=== PATIENT | male | born 1980 | race Caucasian/White ===

== ENCOUNTER 2017-08-03 11:34 | Inpatient (IN) | payer OTHER ==
[2017-08-03 13:04] VITALS: BMI 26.9
--- NOTE | 2017-08-03 13:07 | HP ---
COWS - Scale Resting Pulse: 0= [place] 80 or Below Sweatin= Chills/Flushing Restless Observation: 1= Difficult to Sit Still Pupil Size: 1= Pupils >than Normal Bone or Joint Aches: 2= Severe Diffuse Aches Runny Nose/ Eye Tearin= Runny Nose/Eyes GI Upset > 30mins: 1= Stomach Cramp Tremor Observation: 2= Slight Tremor Visible Yawning Observation: 2= >3x During Session Anxiety or Irritability: 2=Irritable/Anxious Goose Flesh Skin: 3=Piloerection COWS Score: 17 Admission ROS S - HPI Chief Complaint: heroin withdrawal sx Allergies/Adverse Reactions: Allergies Allergy/AdvReac Type Severity Reaction Status Date / Time penicillin G Allergy Severe Hives Verified 08/03/17 12:44 History of Present Illness: 37 years old male with long history of heroin nicotine dependence has depression and abscess on right calf is admitted to detox Exam Limitations: No Limitations - Ebola screening Have you traveled outside of the country in the last 21 days: No (N) Have you had contact with anyone from an Ebola affected area: No Have you been sick,other than usual withdrawal symptoms: No Do you have a fever: No - Review of Systems Constitutional: Loss of Appetite, Changes in sleep, Unintentional Wgt. Loss, Unexplained wgt Loss EENT: reports: No Symptoms Reported Respiratory: reports: No Symptoms reported Cardiac: reports: No Symptoms Reported GI: reports: Nausea, Poor Appetite, Poor Fluid Intake, Abdominal cramping : reports: No Symptoms Reported Musculoskeletal: reports: Back Pain, Joint Pain, Muscle Pain, Neck Pain Integumentary: reports: Change in Color (right calf) Neuro: reports: Tremors Endocrine: reports: No Symptoms Reported Hematology: reports: No Symptoms Reported Psychiatric: reports: Judgement Intact, Orientated x3, Anxious, Depressed Other Systems: Reviewed and Negative Patient History - Patient Medical History Hx Anemia: No Hx Asthma: No Hx Chronic Obstructive Pulmonary Disease (COPD): No Hx Cancer: No Hx Cardiac Disorders: No Hx Congestive Heart Failure: No Hx Hypertension: No Hx Hypercholesterolemia: No Hx Pacemaker: No HX Cerebrovascular Accident: No Hx Seizures: No Hx Dementia: No Hx Diabetes: No Hx Gastrointestinal Disorders: No Hx Liver Disease: No Hx Genitourinary Disorders: No Hx Sexually Transmitted Disorders: No Hx Renal Disease (ESRD): No Hx Thyroid Disease: No Hx Human Immunodeficiency Virus (HIV): No Hx Hepatitis C: No Hx Depression: Yes Hx Suicide Attempt: No Hx Bipolar Disorder: No Hx Schizophrenia: No - Patient Surgical History Past Surgical History: No Hx Neurologic Surgery: No Hx Cataract Extraction: No Hx Cardiac Surgery: No Hx Lung Surgery: No Hx Breast Surgery: No Hx Breast Biopsy: No Hx Abdominal Surgery: No Hx Appendectomy: No Hx Cholecystectomy: No Hx Genitourinary Surgery: No Hx Orthopedic Surgery: No - PPD History Previous Implant?: Yes Documented Results: Negative w/o proof Implanted On Prior R Admission?: No PPD to be Administered?: Yes - Smoking Cessation Smoking history: Current every day smoker Have you smoked in the past 12 months: Yes Aproximately how many cigarettes per day: 20 Cigars Per Day: 0 Hx Chewing Tobacco Use: No Initiated information on smoking cessation: Yes 'Breaking Loose' booklet given: 08/03/17 - Substance & Tx. History Hx Alcohol Use: No Hx Substance Use: No Substance Use Type: Cocaine, Heroin, Marijuana Hx Substance Use Treatment: Yes ([facility] - Substances Abused Heroin Route: Injection Frequency: Daily Amount used: 15-20 bags Age of first use: 31 Date of Last Use: 08/03/17 Marijuana Route: Smoking Frequency: Daily Amount used: $10 Age of first use: 19 Date of Last Use: 08/02/17 Family Disease History - Family Disease History Family Disease History: Diabetes: Mother, Other: Father (/killed) Admission Physical Exam BHS - Vital Signs Vital Signs: Vital Signs - 24 hr 08/03/17 11:53 Temperature 95.8 F L Pulse Rate 75 Respiratory 18 Rate Blood Pressure 125/70 - Physical General Appearance: Yes: Appropriately Dressed, Mild Distress, Tremorous, Irritable, Sweating, Anxious HEENTM: Yes: Hearing grossly Normal, Normocephalic, Normal Voice Respiratory: Yes: Chest Non-Tender, Lungs Clear, Normal Breath Sounds, No Respiratory Distress, No Accessory Muscle Use Neck: Yes: Supple, Trachea in good position Breast: Yes: Breasts Symetrical, No Discharge Cardiology: Yes: Regular Rhythm, Regular Rate, S1, S2 Abdominal: Yes: Normal Bowel Sounds, Non Tender, Flat Genitourinary: Yes: Within Normal Limits Back: Yes: Normal Inspection Musculoskeletal: Yes: full range of Motion, Gait Steady, Back pain, Muscle Pain Extremities: Yes: Normal Range of Motion, Non-Tender, Tremors Neurological: Yes: Fully Oriented, Alert, Motor Strength 5/5, Normal Response, Depressed Affect Integumentary: Yes: Warm, Track Qureshi, Other (abscess right calf) Lymphatic: Yes: Within Normal Limits - Diagnostic (1) Opioid dependence with withdrawal Current Visit: Yes Status: Acute (2) Abscess Current Visit: Yes Status: Acute Comment: right calf begin levaquen (3) Weight loss Current Visit: Yes Status: Acute Comment: ensure (4) Depression (emotion) Current Visit: Yes Status: Acute Qualifiers: Depression Type: dysthymia Qualified Code(s): F34.1 - Dysthymic disorder (5) Nicotine dependence Current Visit: Yes Status: Acute Qualifiers: Nicotine product type: cigarettes Substance use status: in withdrawal Qualified Code(s): F17.213 - Nicotine dependence, cigarettes, with withdrawal Cleared for Admission [facility] - Detox or Rehab [facility] Level of Care: Medically Managed Detox Regimen/Protocol: Methadone [facility] Breath Alcohol Content Breath Alcohol Content: 0 Urine Drug Screen - Results Drug Screen Negative: Yes Urine Drug Screen Results: THC-Marijuana, CASTRO-Cocaine, OPI-Opiates
[2017-08-03] MEDS ORDERED: ACETAMINOPHEN 325 MG TABLET (FP) PO PRN (13:12)
[2017-08-03] MEDS ORDERED: MAGNESIUM HYDROX 2400MG/30ML ORAL SUSPENSION 30 ML CUP PO PRN (13:12)
[2017-08-03] MEDS ORDERED: NICOTINE 21 MG/24 HOURS TOPICAL PATCH TD PRN (13:12)
[2017-08-03] MEDS ORDERED: LOPERAMIDE HCL 2 MG CAPSULE PO PRN (13:12)
[2017-08-03] MEDS ORDERED: MAGNESIUM CITRATE 300 ML BOTTLE PO PRN (13:12)
[2017-08-03] MEDS ORDERED: P-EPHED 60MG/TRIPROLIDI 2.5MG TABLET PO PRN (13:12)
[2017-08-03] MEDS ORDERED: MENTHOL/PHENOL 1 EACH UD MM PRN (13:12)
[2017-08-03] MEDS ORDERED: NICOTINE POLACRILEX 4 MG GUM BUC PRN (13:12)
[2017-08-03] MEDS ORDERED: guaiFENesin/D-METHORPHAN HB 10 ML UNIT-DOSE CUPS PO PRN (13:12)
[2017-08-03] MEDS ORDERED: MAG HYDROX/AL HYDROX/SIMETH 30 ML UNIT-DOSE CUP PO PRN (13:12)
[2017-08-03] MEDS ORDERED: METHADONE HCL 10 MG TABLET (FOR DETOX USE ONLY) PO ONE ×2 (15:45→23:00)
[2017-08-03] MEDS: diazePAM 5 MG TABLET PO PRN ×2 (15:54→22:09)
[2017-08-03] MEDS: IBUPROFEN 400 MG TABLET (FP) PO PRN (16:14)
[2017-08-03] MEDS: THIAMINE HCL 100 MG TABLET (FP) PO SCH (22:08)
[2017-08-03] MEDS: MELATONIN 5 MG TABLETS PO PRN (22:09)
[2017-08-04] MEDS ORDERED: METHADONE HCL 10 MG TABLET (FOR DETOX USE ONLY) PO ONE (10:00)
[2017-08-04] MEDS: PRENATAL VITAMINS W/ FOLIC ACID TABLET (FP) PO SCH (10:19)
[2017-08-04] MEDS ORDERED: BACITRACIN 0.9 GM PACKET TP SCH (11:00)
--- NOTE | 2017-08-04 11:12 | PN ---
BHS COWS - Scale Resting Pulse: 0= [place] 80 or Below Sweatin=Flushed/Facial Moisture Restless Observation: 1= Difficult to Sit Still Pupil Size: 0= Normal to Room Light Bone or Joint Aches: 4=Acute Joint/Muscle Pain Runny Nose/ Eye Tearin= None GI Upset > 30mins: 0= None Tremor Observation of Outstretched Hands: 1= Tremor [place], Not Seen Yawning Observation: 0= None Anxiety or Irritability: 4=Extreme Anxiety Goose Flesh Skin: 0=Smooth Skin COWS Score: 12 S Progress Note (SOAP) Subjective: R leg pain/abscess sleepless Leg muscle spasm Objective: 08/04/17 11:10 A & O x 3 redness/abscess to R leg ambulates Vital Signs Temperature 98.1 F 08/03/17 22:55 Pulse Rate 72 08/04/17 09:20 Respiratory Rate 16 08/04/17 09:20 Blood Pressure 111/54 08/04/17 09:20 O2 Sat by Pulse Oximetry (%) labs pending Assessment: 08/04/17 11:11 withdrawal sx Plan: continue detox muscle relaxant for leg spasm continue antibiotics increase hydration vistaril prn for agitation
[2017-08-04] MEDS ORDERED: CYCLOBENZAPRINE HCL 5 MG TABLET PO ONE (11:15)
[2017-08-04] MEDS: IBUPROFEN 400 MG TABLET (FP) PO PRN (11:59)
[2017-08-04] MEDS: BACITRACIN 0.9 GM PACKET TP SCH ×2 (12:07→22:09)
--- NOTE | 2017-08-04 16:11 | CONSULT ---
[facility] Psychiatric Consult - Data Date of interview: 08/04/17 Admission source: [facility] Identifying data: First admission to [facility] for this 37 y/o male seeking detox treatment on for heroin,cannabis and cocaine dependence.Patient is single,a father of two,homeless,unemployed and supported on food stamps. Substance Abuse History: Confirmed by the patient in my interview.Details in current [facility] report : Smoking history: Current every day smoker. Have you smoked in the past 12 months: Yes. Aproximately how many cigarettes per day: 20. Cigars Per Day: 0. Hx Chewing Tobacco Use: No. Initiated information on smoking cessation: Yes. 'Breaking Loose' booklet given: 08/03/17. - Substance & Tx. History. Hx Alcohol Use: No. Hx Substance Use: No. Substance Use Type: Cocaine, Heroin, Marijuana. Hx Substance Use Treatment: [facility] ([facility] - Substances Abused. Heroin. Route: Injection. Frequency: Daily. Amount used: 15-20 bags. Age of first use: 31. Date of Last Use: 08/03/17. Marijuana. Route: Smoking. Frequency: Daily. Amount used: $10. Age of first use: 19. Date of Last Use: 08/02/17 Medical History: Remarkable for cellulitis of right leg. Psychiatric History: Patient admits to one psychiatric hospitalization ([facility] ) many years ago.Diagnosed with ADD and Bipolar Disorder.Prescribed adderall.Mr Deng reports psychiatric outpatient follow up at one of the [facility] clinics in the [place].Denies history of suicide attempts. Physical/Sexual Abuse/Trauma History: Patient denies. Additional Comment: Urine Drug Screen Results: THC-Marijuana, CASTRO-Cocaine, OPI- Opiates.Noted. Mental Status Exam - Mental Status Exam Alert and Oriented to: Time, Place, Person Cognitive Function: Good Patient Appearance: Well Groomed (tattoos on both forearms) Mood: Hostile, Nervous, Irritable Affect: Mood Congruent Patient Behavior: Cooperative (marginally cooperative) Speech Pattern: Clear, Appropriate Voice Loudness: Normal Thought Process: Goal Oriented Thought Disorder: Not Present Hallucinations: Denies Suicidal Ideation: Denies Homicidal Ideation: Denies Insight/Judgement: Poor Sleep: Poorly (wants trazodone), Difficulty falling asleep Appetite: Good Muscle strength/Tone: Normal Gait/Station: Normal Psychiatric Findings - Problem List ([place] 1, 2,3) (1) Opioid dependence with withdrawal Current Visit: Yes Status: Acute (2) Nicotine dependence Current Visit: Yes Status: Acute Qualifiers: Nicotine product type: cigarettes Substance use status: in withdrawal Qualified Code(s): F17.213 - Nicotine dependence, cigarettes, with withdrawal (3) Cannabis dependence Current Visit: Yes Status: Acute (4) Cocaine dependence Current Visit: Yes Status: Acute (5) Substance induced mood disorder Current Visit: Yes Status: Acute (6) ADD (attention deficit disorder) Current Visit: Yes Status: Chronic Comment: As per self-report.On psychostimulant medication. (7) Insomnia Current Visit: Yes Status: Acute - Initial Treatment Plan Initial Treatment Plan: Psychoeducation.Detoxification.Sleep hygiene.Psychostimulant medication withdrawn during detoxification course.Patient made aware.In response to his request for trazodone, will order trazodone 50 mg po hs (verified by pharmacy claims of 07/19/17 at [facility] ).Mr Deng is informed of the potential for priapism and he is advised to stop taking the drug if occurrence of erectile issues (painful/prolonged erection) .Agrees with this careplan.Observation.
[2017-08-04] MEDS: THIAMINE HCL 100 MG TABLET (FP) PO SCH (22:09)
[2017-08-04] MEDS: diazePAM 5 MG TABLET PO PRN (22:09)
[2017-08-04] MEDS: traZODone HCL 50 MG TABLET (FP) PO SCH (22:10)
[2017-08-05] MEDS ORDERED: METHADONE HCL 5 MG TABLET (FOR DETOX USE ONLY) PO ONE (10:00)
--- NOTE | 2017-08-05 11:01 | PN ---
BHS COWS - Scale Resting Pulse: 0= [place] 80 or Below Sweatin= Chills/Flushing Restless Observation: 0= Sits Still Pupil Size: 0= Normal to Room Light Bone or Joint Aches: 1= Mild Discomfort Runny Nose/ Eye Tearin= None GI Upset > 30mins: 1= Stomach Cramp Tremor Observation of Outstretched Hands: 1= Tremor [place], Not Seen Yawning Observation: 1= 1-2x During Session Anxiety or Irritability: 2=Irritable/Anxious Goose Flesh Skin: 3=Piloerection COWS Score: 10 BHS Progress Note (SOAP) Subjective: sweats body aches interrupted sleep irritable Objective: 08/05/17 11:00 Vital Signs Temperature 98.1 F 08/03/17 22:55 Pulse Rate 65 08/05/17 06:00 Respiratory Rate 18 08/05/17 06:00 Blood Pressure 100/56 08/05/17 06:00 O2 Sat by Pulse Oximetry (%) pt is still pending to have his blood drawn. Assessment: 08/05/17 11:03 withdrawal sx Plan: continue detox increase fluids pending blood drawn
[2017-08-05] MEDS: PRENATAL VITAMINS W/ FOLIC ACID TABLET (FP) PO SCH (11:15)
[2017-08-05] MEDS: BACITRACIN 0.9 GM PACKET TP SCH ×3 (11:16→23:31)
--- NOTE | 2017-08-05 11:32 | PN ---
S Progress Note Note: pt has an open abscess to left lower leg, wound cleanse with N/S and bacitracin covered with gauze and wrapped with kerlex encouraged pt to continue his ABX. apply warm compress prn.
[2017-08-05] MEDS: traZODone HCL 50 MG TABLET (FP) PO SCH (22:32)
[2017-08-05] MEDS: THIAMINE HCL 100 MG TABLET (FP) PO SCH (22:32)
[2017-08-05] MEDS: hydrOXYzine PAMOATE 50 MG CAPSULE (FP) PO PRN (23:49)
[2017-08-06] MEDS: diazePAM 5 MG TABLET PO PRN (00:37)
[2017-08-06] MEDS ORDERED: METHADONE HCL 5 MG TABLET (FOR DETOX USE ONLY) PO ONE (10:00)
[2017-08-06] MEDS: PRENATAL VITAMINS W/ FOLIC ACID TABLET (FP) PO SCH (10:45)
[2017-08-06] MEDS: BACITRACIN 0.9 GM PACKET TP SCH ×2 (10:45→22:18)
[2017-08-06] MEDS: cloNIDine HCL 0.1 MG TABLET PO SCH ×2 (10:45→22:15)
--- NOTE | 2017-08-06 11:21 | PN ---
BHS Progress Note (SOAP) Subjective: ALERT,IRRITABLE,ANXIOUS,INTERRUPTED SLEEP,PAIN IN THE BODY AND BACK Objective: 08/06/17 11:14 Vital Signs Temperature 96.3 F L 08/05/17 23:11 Pulse Rate 60 08/06/17 08:02 Respiratory Rate 18 08/06/17 08:02 Blood Pressure 94/50 08/06/17 08:02 O2 Sat by Pulse Oximetry (%) Assessment: 08/06/17 11:15 WITHDRAWAL SYMPTOM,COMPLIANCE ISSUE,DISCUSSED WITH PATIENT,STATED WILL COMPLY WITH RULE AND REGULATION Plan: CONTINUE DETOX
[2017-08-06 14:52] LABS: URINE APPEARANCE CLEAR; URINE BILIRUBIN NEGATIVE (<2.0 mg/dL); URINE BLOOD NEGATIVE (NEGATIVE); URINE COLOR LTYELLOW; URINE GLUCOSE (UA) NEGATIVE (NEGATIVE); URINE KETONE NEGATIVE (NEGATIVE); URINE LEUK ESTERASE NEGATIVE (NEGATIVE); URINE NITRITE NEGATIVE (NEGATIVE); URINE PROTEIN NEGATIVE (NEGATIVE); URINE UROBILINOGEN NEGATIVE mg/dL (0.2-1.0)
[2017-08-06] MEDS: traZODone HCL 50 MG TABLET (FP) PO SCH (22:15)
[2017-08-06] MEDS: THIAMINE HCL 100 MG TABLET (FP) PO SCH (22:15)
[2017-08-06] MEDS: MELATONIN 5 MG TABLETS PO PRN (22:17)
[2017-08-06] MEDS: CYCLOBENZAPRINE HCL 10 MG TABLET (FP) PO PRN (22:17)
--- NOTE | 2017-08-07 00:52 | EKG ---
Test Reason : Blood Pressure : / mmHG Vent. Rate : 068 BPM Atrial Rate : 068 BPM P-R Int : 136 ms QRS Dur : 100 ms QT Int : 400 ms P-R-T Axes : 053 077 054 degrees QTc Int : 425 ms NORMAL SINUS RHYTHM NORMAL ECG NO PREVIOUS ECGS AVAILABLE Confirmed by ARRON FELIPE MD ([id number]) on 08/07/2017 12:52:33 AM Referred By: Confirmed By:ARRON FELIPE MD
[2017-08-07] MEDS ORDERED: METHADONE HCL 10 MG TABLET (FOR DETOX USE ONLY) PO ONE (10:00)
[2017-08-07] MEDS: PRENATAL VITAMINS W/ FOLIC ACID TABLET (FP) PO SCH (11:21)
[2017-08-07] MEDS: BACITRACIN 0.9 GM PACKET TP SCH ×2 (11:21→22:10)
[2017-08-07] MEDS: cloNIDine HCL 0.1 MG TABLET PO SCH ×2 (11:22→22:10)
--- NOTE | 2017-08-07 11:32 | PN ---
S Progress Note (SOAP) Subjective: ALERT,IRRITABLE,ANXIOUS,INTERRUPTED SLEEP, Objective: 08/07/17 11:31 Vital Signs Temperature 98.2 F 08/07/17 09:13 Pulse Rate 56 L 08/07/17 09:13 Respiratory Rate 18 08/07/17 09:13 Blood Pressure 107/60 08/07/17 09:13 O2 Sat by Pulse Oximetry (%) Assessment: 08/07/17 11:31 WITHDRAWAL SYMPTOM Plan: CONTINUE DETOX,DISCHARGE IN AM
[2017-08-07 15:50] VITALS: TEMP 97.1
[2017-08-07] MEDS: CYCLOBENZAPRINE HCL 10 MG TABLET (FP) PO PRN (22:09)
[2017-08-07] MEDS: THIAMINE HCL 100 MG TABLET (FP) PO SCH (22:09)
[2017-08-07] MEDS: MELATONIN 5 MG TABLETS PO PRN (22:10)
[2017-08-07] MEDS: traZODone HCL 50 MG TABLET (FP) PO SCH (22:10)
[2017-08-07] MEDS: hydrOXYzine PAMOATE 50 MG CAPSULE (FP) PO PRN (22:12)
[2017-08-08] MEDS ORDERED: METHADONE HCL 5 MG TABLET (FOR DETOX USE ONLY) PO ONE ×2 (06:00→09:10)
[2017-08-08 07:02] VITALS: BP 98/51; PULSE 55
--- NOTE | 2017-08-08 09:16 | PN ---
S Progress Note (SOAP) Subjective: ALERT,NO COMPLAINT Objective: 08/08/17 09:12 Vital Signs Temperature 97.1 F L 08/07/17 15:50 Pulse Rate 55 L 08/08/17 07:01 Respiratory Rate 16 08/08/17 07:01 Blood Pressure 98/51 08/08/17 07:01 O2 Sat by Pulse Oximetry (%) Assessment: 08/08/17 09:12 DETOX COMPLETED,NO WITHDRAWAL SYMPTOM PATIENT REFUSED BLOOD TEST Plan: DISCHARGE TODAY,FOLLOW UP WITH AFTER CARE PROGRAM ARRANGEMENT
--- NOTE | 2017-08-08 09:23 | DS ---
[facility] Detox Discharge Summary Admission Date: 08/03/17 Discharge Date: 08/08/17 - History Present History: Opioid Dependence Additional Comments: FOLLOW UP WITH AFTER [facility] PROGRAM ARRANGEMENT Pertinent Past History: ABSCESS OF RIGHT LEG NICOTINE DEPENDENCE WEIGHT LOSS DEPRESSION - Physical Exam Results Vital Signs: Vital Signs Temperature 97.1 F L 08/07/17 15:50 Pulse Rate 55 L 08/08/17 07:01 Respiratory Rate 16 08/08/17 07:01 Blood Pressure 98/51 08/08/17 07:01 O2 Sat by Pulse Oximetry (%) Pertinent Admission Physical Exam Findings: WITHDRAWAL SIGNS AND SYMPTOM Vital Signs Temperature 97.1 F L 08/07/17 15:50 Pulse Rate 55 L 08/08/17 07:01 Respiratory Rate 16 08/08/17 07:01 Blood Pressure 98/51 08/08/17 07:01 O2 Sat by Pulse Oximetry (%) Laboratory Last Values Urine Color Ltyellow 08/06/17 10:20 Urine Appearance Clear 08/06/17 10:20 Urine pH 6.0 (5.0-8.0) 08/06/17 10:20 Ur Specific [place] 1.015 (1.001-1.035) 08/06/17 10:20 Urine Protein Negative (NEGATIVE) 08/06/17 10:20 Urine Glucose (UA) Negative (NEGATIVE) 08/06/17 10:20 Urine Ketones Negative (NEGATIVE) 08/06/17 10:20 Urine Blood Negative (NEGATIVE) 08/06/17 10:20 Urine Nitrite Negative (NEGATIVE) 08/06/17 10:20 Urine Bilirubin Negative (<2.0 mg/dL) 08/06/17 10:20 Urine Urobilinogen Negative mg/dL (0.2-1.0) 08/06/17 10:20 Ur Leukocyte Esterase Negative (NEGATIVE) 08/06/17 10:20 - Treatment Hospital Course: Detox Protocol Followed, Detoxed Safely, Responded well, Discharged Condition Good Patient has Accepted a Rehab Referral to: DECLINED - Medication Discharge Medications: Ambulatory Orders Trazodone HCl 50 mg PO HS #20 tablet 08/04/17 - Diagnosis (1) Opioid dependence with withdrawal Current Visit: Yes Status: Acute (2) Abscess of leg, right Current Visit: Yes Status: Acute (3) Cocaine dependence Current Visit: Yes Status: Acute (4) Nicotine dependence Current Visit: Yes Status: Acute Qualifiers: Nicotine product type: cigarettes Substance use status: in withdrawal Qualified Code(s): F17.213 - Nicotine dependence, cigarettes, with withdrawal (5) Weight loss Current Visit: Yes Status: Chronic - AMA Did Patient Leave Against Medical Advice: No
[2017-08-08] MEDS: cloNIDine HCL 0.1 MG TABLET PO SCH (09:28)
[2017-08-08] MEDS: BACITRACIN 0.9 GM PACKET TP SCH (09:28)
[2017-08-08] MEDS: PRENATAL VITAMINS W/ FOLIC ACID TABLET (FP) PO SCH (09:29)
== END 2017-08-08 10:00 | disposition home or self-care (01) | DRG 773 ==
LOC: YASAS 11:34 → Y6N 15:07
PROVIDERS: ADMIT Surgery; ATTEND Surgery
PROC: HZ2ZZZZ Detoxification Services for Substance Abuse Treatment (ICD-10-PCS; principal; 2017-08-03)
DX: F11.23 Opioid dependence with withdrawal (principal); F14.20 Cocaine dependence, uncomplicated; F12.20 Cannabis dependence, uncomplicated; F17.213 Nicotine dependence, cigarettes, with withdrawal; F32.9 Major depressive disorder, single episode, unspecified; F19.24 Other psychoactive substance dependence with psychoactive substance-induced mood disorder; F34.1 Dysthymic disorder; F98.8 Other specified behavioral and emotional disorders with onset usually occurring in childhood and adolescence; G47.00 Insomnia, unspecified; R63.4 Abnormal weight loss; Z68.26 Body mass index [BMI] 26.0-26.9, adult; L02.415 Cutaneous abscess of right lower limb
CPT/HCPCS: 81003; 93005; 93010; J0735

== ENCOUNTER 2017-11-05 14:41 | Inpatient (IN) | payer OTHER ==
[2017-11-05 17:15] VITALS: BMI 27.3
--- NOTE | 2017-11-05 20:41 | HP ---
COWS - Scale Resting Pulse: 0= [place] 80 or Below Sweatin= Chills/Flushing Restless Observation: 5= Unable to Sit Still Pupil Size: 0= Normal to Room Light Bone or Joint Aches: 4=Acute Joint/Muscle Pain Runny Nose/ Eye Tearin= Runny Nose/Eyes GI Upset > 30mins: 0= None Tremor Observation: 2= Slight Tremor Visible Yawning Observation: 1= 1-2x During Session Anxiety or Irritability: 2=Irritable/Anxious Goose Flesh Skin: 0=Smooth Skin COWS Score: 17 Admission [facility] Chief Complaint: c/o withdrawal sx's. seeking detox from heroin Allergies/Adverse Reactions: Allergies Allergy/AdvReac Type Severity Reaction Status Date / Time penicillin G Allergy Severe Hives Verified 11/05/17 17:18 History of Present Illness: 37 Y.O. MALE WITH HEROIN DEPENDENCE ADMITTED TO DETOX. CLIENT IS KNOWN TO THIS PROGRAM. LAST HERE 07/2017. SELF REFERRED. REPORTS LONGEST CLEAN TIME 1 YEAR. REPORTS HX/O OVERDOSE,. DENIES PAST/PRESENT SI/HI, SEIZURE D/O. Exam Limitations: No Limitations - Ebola screening Have you traveled outside of the country in the last 21 days: No Have you had contact with anyone from an Ebola affected area: No Have you been sick,other than usual withdrawal symptoms: No Do you have a fever: No - Review of Systems Constitutional: Chills, Loss of Appetite, Malaise, Night Sweats, Changes in sleep, Unintentional Wgt. Loss EENT: reports: Other ([place] NO[place]) Respiratory: reports: No Symptoms reported Cardiac: reports: No Symptoms Reported GI: reports: Poor Appetite : reports: No Symptoms Reported Musculoskeletal: reports: Joint Pain Integumentary: reports: No Symptoms Reported Neuro: reports: No Symptoms reported Endocrine: reports: No Symptoms Reported Hematology: reports: No Symptoms Reported Psychiatric: reports: Anxious, Depressed Other Systems: Reviewed and Negative Patient History - Patient Medical History Hx Anemia: No Hx Asthma: No Hx Chronic Obstructive Pulmonary Disease (COPD): No Hx Cancer: No Hx Cardiac Disorders: No Hx Congestive Heart Failure: No Hx Hypertension: No Hx Hypercholesterolemia: No Hx Pacemaker: No HX Cerebrovascular Accident: No Hx Seizures: No Hx Dementia: No Hx Diabetes: No Hx Gastrointestinal Disorders: No Hx Liver Disease: No Hx Genitourinary Disorders: No Hx Sexually Transmitted Disorders: No Hx Renal Disease (ESRD): No Hx Thyroid Disease: No Hx Human Immunodeficiency Virus (HIV): No Hx Hepatitis C: No Hx Depression: Yes Hx Suicide Attempt: Yes (Pt states he tried to overdose 1 yr ago.) Hx Bipolar Disorder: No Hx Schizophrenia: No Other Medical History: DENIES - Patient Surgical History Past Surgical History: No Hx Neurologic Surgery: No Hx Cataract Extraction: No Hx Cardiac Surgery: No Hx Lung Surgery: No Hx Breast Surgery: No Hx Breast Biopsy: No Hx Abdominal Surgery: No Hx Appendectomy: No Hx Cholecystectomy: No Hx Genitourinary Surgery: No Hx Section: No Hx Orthopedic Surgery: No Anesthesia Reaction: No - PPD History Previous Implant?: Yes Documented Results: Negative w/proof Implanted On Prior [facility] Admission?: Yes Date: 08/05/17 Results: 0 mm - Smoking Cessation Smoking history: Current every day smoker Have you smoked in the past 12 months: Yes Aproximately how many cigarettes per day: 10 Cigars Per Day: 0 Hx Chewing Tobacco Use: No Initiated information on smoking cessation: Yes 'Breaking Loose' booklet given: 11/05/17 - Substance & Tx. History Hx Alcohol Use: No Hx Substance Use: Yes Substance Use Type: Cocaine, Heroin, Marijuana Hx Substance Use Treatment: Yes ([facility]) - Substances Abused Heroin Route: Injection Frequency: Daily Amount used: 1 and 1/2 grams Age of first use: 29 Date of Last Use: 11/05/17 Cocaine Route: Oral Frequency: Daily Amount used: 1 bag Age of first use: 29 Date of Last Use: 10/29/17 Marijuana/Hashish Route: Smoking Frequency: Daily Amount used: 5 blunts Age of first use: 18 Date of Last Use: 11/05/17 Family Disease History - Family Disease History Family Disease History: Diabetes: Mother, Other: Father (/killed) Admission Physical Exam S - Vital Signs Vital Signs: Vital Signs - 24 hr 11/05/17 17:08 Temperature 97.9 F Pulse Rate 83 Respiratory 18 Rate Blood Pressure 105/63 - Physical General Appearance: Yes: Disheveled, Mild Distress, Tremorous, Irritable, Anxious HEENTM: Yes: EOMI, Normocephalic, Normal Voice, SARAH, Pharynx Normal, Rhinorrhea Respiratory: Yes: Chest Non-Tender, Lungs Clear, Normal Breath Sounds, No Respiratory Distress, No Accessory Muscle Use Neck: Yes: No masses,lesions,Nodules, Supple, Trachea in good position Breast: Yes: Breast Exam Deferred Cardiology: Yes: Regular Rhythm, Regular Rate, S1, S2 Abdominal: Yes: Non Tender, Soft, Increased Bowel Sounds Genitourinary: Yes: Within Normal Limits Back: Yes: Normal Inspection Musculoskeletal: Yes: full range of Motion, Gait Steady Extremities: Yes: Normal Capillary Refill, Normal Range of Motion, Non-Tender, Tremors Neurological: Yes: Fully Oriented, Alert, Motor Strength 5/5, Depressed Affect Integumentary: Yes: Normal Color, Dry, Warm, Track Qureshi, Other (LEFT AC NOTED WITH SMALL RAISED AREA. CLIENT STATES PRESENT X 1 WEEK FROM INJECTING HEROIN. DENIES PAIN. NO REDNESS OR WARMTH NOTED. WILL CONT TO MONITOR CLINICALLY RESOLVING ABSCESS NOTED TO LEFT LEG) Lymphatic: Yes: Within Normal Limits - Diagnostic (1) Depressed affect Current Visit: Yes Status: Suspected (2) Cannabis dependence Current Visit: Yes Status: Chronic (3) Cocaine dependence Current Visit: Yes Status: Chronic Qualifiers: Substance use status: uncomplicated Qualified Code(s): F14.20 - Cocaine dependence, uncomplicated (4) Insomnia Current Visit: Yes Status: Suspected (5) Nicotine dependence Current Visit: Yes Status: Chronic Qualifiers: Nicotine product type: cigarettes Substance use status: in withdrawal Qualified Code(s): F17.213 - Nicotine dependence, cigarettes, with withdrawal (6) Opioid dependence with withdrawal Current Visit: Yes Status: Acute (7) Substance induced mood disorder Current Visit: Yes Status: Suspected Cleared for Admission [facility] - Detox or Rehab [facility] Level of Care: Medically Managed Detox Regimen/Protocol: Methadone Clae[facility] for Rehab Admission: No [facility] Breath Alcohol Content Breath Alcohol Content: 0 Urine Drug Screen - Results Drug Screen Negative: No Urine Drug Screen Results: THC-Marijuana, CASTRO-Cocaine, OPI-Opiates, OXY- Oxycodone
[2017-11-05] MEDS ORDERED: MAGNESIUM CITRATE 300 ML BOTTLE PO PRN (20:50)
[2017-11-05] MEDS ORDERED: MAG HYDROX/AL HYDROX/SIMETH 30 ML UNIT-DOSE CUP PO PRN (20:50)
[2017-11-05] MEDS ORDERED: LOPERAMIDE HCL 2 MG CAPSULE PO PRN (20:50)
[2017-11-05] MEDS ORDERED: guaiFENesin/D-METHORPHAN HB 10 ML UNIT-DOSE CUPS PO PRN (20:50)
[2017-11-05] MEDS ORDERED: MAGNESIUM HYDROX 2400MG/30ML ORAL SUSPENSION 30 ML CUP PO PRN (20:50)
[2017-11-05] MEDS ORDERED: P-EPHED 60MG/TRIPROLIDI 2.5MG TABLET PO PRN (20:50)
[2017-11-05] MEDS ORDERED: ACETAMINOPHEN 325 MG TABLET (FP) PO PRN (20:50)
[2017-11-05] MEDS ORDERED: NICOTINE POLACRILEX 2 MG GUM BUC PRN (20:50)
[2017-11-05] MEDS ORDERED: MENTHOL/PHENOL 1 EACH UD MM PRN (20:50)
[2017-11-05] MEDS: diazePAM 5 MG TABLET PO PRN (22:13)
[2017-11-05] MEDS: THIAMINE HCL 100 MG TABLET (FP) PO SCH (22:13)
[2017-11-05] MEDS ORDERED: METHADONE HCL 10 MG TABLET (FOR DETOX USE ONLY) PO ONE ×2 (22:15→23:00)
[2017-11-06 00:57] LABS: URINE APPEARANCE SLCLOUDY; URINE BILIRUBIN NEGATIVE (<2.0 mg/dL); URINE COLOR DKYELLOW; URINE GLUCOSE (UA) NEGATIVE (NEGATIVE); URINE KETONE NEGATIVE (NEGATIVE); URINE LEUK ESTERASE NEGATIVE (NEGATIVE); URINE NITRITE NEGATIVE (NEGATIVE); URINE PROTEIN NEGATIVE (NEGATIVE)
[2017-11-06] MEDS ORDERED: METHADONE HCL 10 MG TABLET (FOR DETOX USE ONLY) PO ONE (10:00)
[2017-11-06] MEDS: PRENATAL VITAMINS W/ FOLIC ACID TABLET (FP) PO SCH (11:16)
[2017-11-06] MEDS: NICOTINE 14 MG/24 HOURS TOPICAL PATCH TD SCH (11:17)
--- NOTE | 2017-11-06 13:16 | EKG ---
Test Reason : Blood Pressure : / mmHG Vent. Rate : 060 BPM Atrial Rate : 060 BPM P-R Int : 144 ms QRS Dur : 084 ms QT Int : 416 ms P-R-T Axes : 063 076 054 degrees QTc Int : 416 ms SINUS RHYTHM WITH MARKED SINUS ARRHYTHMIA POSSIBLE LEFT ATRIAL ENLARGEMENT BORDERLINE ECG WHEN COMPARED WITH ECG OF 03-AUG-2017 15:37, NO SIGNIFICANT CHANGE WAS FOUND Confirmed by Joe Romero MD ([id number]) on 11/06/2017 1:16:05 PM Referred By: Confirmed By:Joe Romero MD
--- NOTE | 2017-11-06 15:30 | PN ---
BHS COWS - Scale Resting Pulse: 0= [place] 80 or Below Sweatin= Chills/Flushing Restless Observation: 1= Difficult to Sit Still Pupil Size: 0= Normal to Room Light Bone or Joint Aches: 0= None Runny Nose/ Eye Tearin= Runny Nose/Eyes GI Upset > 30mins: 0= None Tremor Observation of Outstretched Hands: 0= None Yawning Observation: 2= >3x During Session Anxiety or Irritability: 2=Irritable/Anxious Goose Flesh Skin: 3=Piloerection COWS Score: 11 BHS Progress Note (SOAP) Subjective: Anxious, Fatigue, Interrupted Sleep. Objective: PATIENT A & O X 3. NO ACUTE DISTRESS. 11/06/17 15:28 Vital Signs Temperature 98.5 F 11/06/17 06:55 Pulse Rate 58 L 11/06/17 13:36 Respiratory Rate 18 11/06/17 13:36 Blood Pressure 118/73 11/06/17 13:36 O2 Sat by Pulse Oximetry (%) Laboratory Tests 11/05/17 23:28 Urine Color Dkyellow Urine Appearance Slcloudy Urine pH 5.0 Ur Specific [place] 1.032 Urine Protein Negative Urine Glucose (UA) Negative Urine Ketones Negative Urine Blood Negative Urine Nitrite Negative Urine Bilirubin Negative Urine Urobilinogen 2.0 Ur Leukocyte Esterase Negative UA RESULTS NOTED. CBC, CMP, RPR RESULTS PENDING. 11/06/17 15:29 Assessment: 11/06/17 15:30 WITHDRAWAL SYMPTOMS. Plan: CONTINUE DETOX.
--- NOTE | 2017-11-06 18:25 | CONSULT ---
[facility] Psychiatric Consult - Data Date of interview: 11/06/17 Admission source: [facility] Identifying data: Hvac Estimator approached patient at bedside.Mr Deng declined to cooperate for psychiatric evaluation.
[2017-11-06] MEDS: diazePAM 5 MG TABLET PO PRN (22:16)
[2017-11-06] MEDS: THIAMINE HCL 100 MG TABLET (FP) PO SCH (22:16)
[2017-11-06] MEDS: MELATONIN 5 MG TABLETS PO PRN (22:16)
[2017-11-07] MEDS ORDERED: CYCLOBENZAPRINE HCL 5 MG TABLET PO PRN (00:37)
[2017-11-07] MEDS ORDERED: METHADONE HCL 5 MG TABLET (FOR DETOX USE ONLY) PO ONE (10:00)
[2017-11-07] MEDS: CYCLOBENZAPRINE HCL 10 MG TABLET (FP) PO PRN ×2 (10:03→21:48)
[2017-11-07] MEDS: diazePAM 5 MG TABLET PO PRN ×2 (10:03→21:48)
[2017-11-07] MEDS: PRENATAL VITAMINS W/ FOLIC ACID TABLET (FP) PO SCH (10:03)
[2017-11-07] MEDS: NICOTINE 14 MG/24 HOURS TOPICAL PATCH TD SCH (10:03)
--- NOTE | 2017-11-07 14:24 | PN ---
BHS COWS - Scale Resting Pulse: 0= NE 80 or Below Sweatin= Chills/Flushing Restless Observation: 1= Difficult to Sit Still Pupil Size: 0= Normal to Room Light Bone or Joint Aches: 0= None Runny Nose/ Eye Tearin= Nasal Congestion GI Upset > 30mins: 0= None Tremor Observation of Outstretched Hands: 0= None Yawning Observation: 2= >3x During Session Anxiety or Irritability: 2=Irritable/Anxious Goose Flesh Skin: 3=Piloerection COWS Score: 10 BHS Progress Note (SOAP) Subjective: Interrupted Sleep, Sweating, Fatigue, Body Aches. Objective: PATIENT A & O X 3, OBSERVED AMBULATING ON UNIT. NO ACUTE DISTRESS. 11/07/17 14:25 Vital Signs Temperature 98.5 F 11/06/17 06:55 Pulse Rate 61 11/07/17 10:07 Respiratory Rate 16 11/07/17 10:07 Blood Pressure 118/80 11/07/17 10:07 O2 Sat by Pulse Oximetry (%) Laboratory Tests 11/05/17 23:28 Urine Color Dkyellow Urine Appearance Slcloudy Urine pH 5.0 Ur Specific [place] 1.032 Urine Protein Negative Urine Glucose (UA) Negative Urine Ketones Negative Urine Blood Negative Urine Nitrite Negative Urine Bilirubin Negative Urine Urobilinogen 2.0 Ur Leukocyte Esterase Negative UA RESULTS NOTED. 11/07/17 14:26 Assessment: 11/07/17 14:26 WITHDRAWAL SYMPTOMS. 11/07/17 14:26 Plan: CONTINUE DETOX. INCREASE DAILY PO FLUID INTAKE. PRN FLEXERIL FOR BODY ACHES / MUSCLE SPASMS.
[2017-11-07] MEDS: THIAMINE HCL 100 MG TABLET (FP) PO SCH (21:48)
[2017-11-07] MEDS: MELATONIN 5 MG TABLETS PO PRN (21:48)
[2017-11-07] MEDS: IBUPROFEN 400 MG TABLET (FP) PO PRN (23:35)
[2017-11-08] MEDS ORDERED: METHADONE HCL 5 MG TABLET (FOR DETOX USE ONLY) PO ONE (10:00)
[2017-11-08] MEDS: PRENATAL VITAMINS W/ FOLIC ACID TABLET (FP) PO SCH (10:45)
[2017-11-08] MEDS: NICOTINE 14 MG/24 HOURS TOPICAL PATCH TD SCH (10:46)
[2017-11-08] MEDS: diazePAM 5 MG TABLET PO PRN ×2 (10:46→17:29)
[2017-11-08] MEDS: CYCLOBENZAPRINE HCL 10 MG TABLET (FP) PO PRN (10:49)
[2017-11-08] MEDS: IBUPROFEN 400 MG TABLET (FP) PO PRN ×2 (10:49→17:28)
[2017-11-08] MEDS: LIDOCAINE 5% TOPICAL PATCH TP SCH (12:30)
[2017-11-08 14:39] VITALS: TEMP 97
--- NOTE | 2017-11-08 15:15 | PN ---
BHS Progress Note (SOAP) Subjective: Interrupted Sleep, Body Aches, Anxious, Fatigue. Objective: PATIENT A & O X 3, OBSERVED AMBULATING ON UNIT. NO ACUTE DISTRESS. 11/08/17 15:14 Vital Signs Temperature 97.0 F L 11/08/17 14:38 Pulse Rate 51 L 11/08/17 14:38 Respiratory Rate 18 11/08/17 14:38 Blood Pressure 97/56 11/08/17 14:38 O2 Sat by Pulse Oximetry (%) Laboratory Tests 11/05/17 23:28 Urine Color Dkyellow Urine Appearance Slcloudy Urine pH 5.0 Ur Specific [place] 1.032 Urine Protein Negative Urine Glucose (UA) Negative Urine Ketones Negative Urine Blood Negative Urine Nitrite Negative Urine Bilirubin Negative Urine Urobilinogen 2.0 Ur Leukocyte Esterase Negative UA RESULTS NOTED. Assessment: 11/08/17 15:20 WITHDRAWAL SYMPTOMS. Plan: CONTINUE DETOX. INCREASE DAILY PO FLUID INTAKE. CHANGE TO BACLOFEN PRN FOR MUSCLE SPASMS (PATIENT REPORTS POOR EFFECT FROM FLEXERIL).
--- NOTE | 2017-11-08 16:47 | PN ---
[facility] Progress Note Note: Psychiatric nurse practitoner note: Pt. refused psychiatric consultation yesterday. Psychiatric consultation reordered for today. Pt. awaken by publications writer for psychiatric consultation. Pt. refused. Stated to publications writer, " not right now."
[2017-11-08] MEDS: LIDOCAINE PATCH REMOVAL MC SCH (21:56)
[2017-11-08] MEDS: THIAMINE HCL 100 MG TABLET (FP) PO SCH (21:57)
[2017-11-08] MEDS: MELATONIN 5 MG TABLETS PO PRN (21:59)
[2017-11-08] MEDS: BACLOFEN 10 MG TABLET (FP) PO PRN (21:59)
[2017-11-09] MEDS ORDERED: METHADONE HCL 10 MG TABLET (FOR DETOX USE ONLY) PO ONE (10:00)
--- NOTE | 2017-11-09 10:26 | CONSULT ---
[facility] Psychiatric Consult - Data Date of interview: 11/09/17 Admission source: [facility] Identifying data: Patient is a 37 year old single male, father of two,domiciled (lives with family), and currently homeless. This is one of multiple admissions for patient. Patient admitted to for cocaine, opiate and marijuana dependence. Substance Abuse History: Smoking Cessation. Smoking history: Current every day smoker. Have you smoked in the past 12 months: Yes. Aproximately how many cigarettes per day: 10. Cigars Per Day: 0. Hx Chewing Tobacco Use: No. Initiated information on smoking cessation: Yes. 'Breaking Loose' booklet given : 11/05/17. - Substance & Tx. History. Hx Alcohol Use: No. Hx Substance Use: Yes. Substance Use Type: Cocaine, Heroin, Marijuana. Hx Substance Use Treatment: Yes ([facility]). - Substances Abused. Heroin. Route: Injection. Frequency: Daily. Amount used: 1 and 1/2 grams. Age of first use: 29. Date of Last Use: 11/05/17. Cocaine. Route: Oral. Frequency: Daily. Amount used: 1 bag. Age of first use: 29. Date of Last Use: 10/29/17. Marijuana/ Hashish. Route: Smoking. Frequency: Daily. Amount used: 5 blunts. Age of first use: 18. Date of Last Use: 11/05/17 Medical History: denies. Psychiatric History: Patient denies h/o psychiatric hospitalization and outpatient care. Pt. reports one suicide attempt via overdose last year but did not seek medical attention. As per Dr. Taveras entry on 07/25/17 patient admitted to one psychiatric hospitalization at [facility]. He stated he was diagnosed with ADD (was prescribed adderall) and bipolar disorder. Pt. also received OPD at one of the [facility] clinics in the [place]. Pt. presently reports poor sleep. A prescription of trazodone 50mg was electronically sent to patient's pharmacy on 09/14/17. Physical/Sexual Abuse/Trauma History: denies. Mental Status Exam - Mental Status Exam Alert and Oriented to: Time, Place, Person Cognitive Function: Good Patient Appearance: Well Groomed Mood: Withdrawn, Euthymic Affect: Mood Congruent Patient Behavior: Guarded, Cooperative Speech Pattern: Appropriate Voice Loudness: Moderately Soft/Quiet Thought Process: Intact, Goal Oriented Thought Disorder: Not Present Hallucinations: Denies Suicidal Ideation: Denies Homicidal Ideation: Denies Insight/Judgement: Poor Sleep: Poorly Appetite: Fair Muscle strength/Tone: Normal Gait/Station: Normal Psychiatric Findings - Problem List (Atkins 1, 2,3) (1) Substance-induced sleep disorder Current Visit: Yes Status: Acute (2) Substance induced mood disorder Current Visit: Yes Status: Acute (3) Opioid dependence with withdrawal Current Visit: Yes Status: Acute (4) Cannabis dependence Current Visit: Yes Status: Chronic (5) Cocaine dependence Current Visit: Yes Status: Chronic Qualifiers: Substance use status: uncomplicated Qualified Code(s): F14.20 - Cocaine dependence, uncomplicated (6) Nicotine dependence Current Visit: Yes Status: Chronic Qualifiers: Nicotine product type: cigarettes Substance use status: in withdrawal Qualified Code(s): F17.213 - Nicotine dependence, cigarettes, with withdrawal - Initial Treatment Plan Initial Treatment Plan: Psychoeducation provided. Detoxification in progress. Trazodone 50mg qhs. Benefits and side effects discussed. Pt. made aware of the risk of priapism. Pt. reports favorable effects from previously accepting trazdone. A prescription of trazodone 50mg was electronically sent to patient's pharmacy on 09/14/17. Verbal consent given.
[2017-11-09] MEDS: PRENATAL VITAMINS W/ FOLIC ACID TABLET (FP) PO SCH (10:37)
[2017-11-09] MEDS: LIDOCAINE 5% TOPICAL PATCH TP SCH (10:37)
[2017-11-09] MEDS: NICOTINE 14 MG/24 HOURS TOPICAL PATCH TD SCH (10:37)
[2017-11-09] MEDS: BACLOFEN 10 MG TABLET (FP) PO PRN ×2 (10:37→22:31)
--- NOTE | 2017-11-09 13:26 | PN ---
BHS Progress Note (SOAP) Subjective: Fatigue, Body Aches. Objective: PATIENT A & O X 3, OBSERVED AMBULATING ON UNIT. NO ACUTE DISTRESS. 11/09/17 13:27 Vital Signs Temperature 97.0 F L 11/08/17 14:38 Pulse Rate 60 11/09/17 10:41 Respiratory Rate 18 11/09/17 10:41 Blood Pressure 114/71 11/09/17 10:41 O2 Sat by Pulse Oximetry (%) Laboratory Tests 11/05/17 23:28 Urine Color Dkyellow Urine Appearance Slcloudy Urine pH 5.0 Ur Specific [place] 1.032 Urine Protein Negative Urine Glucose (UA) Negative Urine Ketones Negative Urine Blood Negative Urine Nitrite Negative Urine Bilirubin Negative Urine Urobilinogen 2.0 Ur Leukocyte Esterase Negative UA RESULTS NOTED. OTHER ADMISSION LABS NOT DONE DUE TO DIFFICULTY IN DRAWING PATIENT'S BLOOD ON ADMISSION. Assessment: 11/09/17 13:29 WITHDRAWAL SYMPTOMS. Plan: CONTINUE DETOX.
[2017-11-09] MEDS ORDERED: traZODone HCL 50 MG TABLET (FP) PO SCH (22:00)
[2017-11-09 22:18] VITALS: BP 114/68; PULSE 76
[2017-11-09] MEDS: THIAMINE HCL 100 MG TABLET (FP) PO SCH (22:31)
[2017-11-09] MEDS: LIDOCAINE PATCH REMOVAL MC SCH (22:31)
[2017-11-09] MEDS: MELATONIN 5 MG TABLETS PO PRN (22:32)
[2017-11-09] MEDS: IBUPROFEN 400 MG TABLET (FP) PO PRN (22:35)
[2017-11-10] MEDS ORDERED: METHADONE HCL 5 MG TABLET (FOR DETOX USE ONLY) PO ONE (06:00)
[2017-11-10] MEDS: LIDOCAINE 5% TOPICAL PATCH TP SCH (09:00)
[2017-11-10] MEDS: NICOTINE 14 MG/24 HOURS TOPICAL PATCH TD SCH (09:00)
[2017-11-10] MEDS: PRENATAL VITAMINS W/ FOLIC ACID TABLET (FP) PO SCH (09:00)
[2017-11-10 12:52] LABS: HEMATOCRIT 35.2 % (35.4-49); HEMOGLOBIN 11.3 GM/dL (11.7-16.9); MCH 26.8 pg (25.7-33.7); MCHC 32.1 g/dl (32.0-35.9); MEAN CELL VOLUME 83.5 fl (80-96); MEAN PLT VOLUME 8.5 fl (7.5-11.1); PLATELET COUNT 240 K/MM3 (134-434); RBC 4.22 M/mm3 (4.00-5.60); RDW 13.8 % (11.9-15.9); WHITE BLOOD COUNT 7.6 K/mm3 (4.0-10.0)
[2017-11-10 13:00] LABS: ALBUMIN 2.7 g/dl (3.4-5.0); ANION GAP 5 MMOL/L (8-16); BLOOD UREA NITROGEN 18 mg/dL (7-18); CALCIUM 8.2 mg/dL (8.5-10.1); CHLORIDE 104 mmol/L (98-107); CO2 30 mmol/L (21-32); GLUCOSE,RANDOM 78 mg/dL (74-106); POTASSIUM 4.5 mmol/L (3.5-5.1); SODIUM 139 mmol/L (136-145)
[2017-11-10 13:04] LABS: BILIRUBIN,TOTAL 0.2 mg/dL (0.2-1.0); CREATININE 0.9 mg/dL (0.7-1.3); SGOT/AST 13 U/L (15-37); SGPT/ALT 20 U/L (12-78); TOT PROT 6.7 g/dl (6.4-8.2)
[2017-11-10 13:05] LABS: ALK PHOS 56 U/L (45-117)
--- NOTE | 2017-11-10 21:58 | PN ---
BHS Progress Note (SOAP) Subjective: Patient denies current Detox symptoms and reports that he feels well overall. Objective: PATIENT A & O X 3, OBSERVED AMBULATING ON UNIT. NO ACUTE DISTRESS. 11/10/17 21:56 Vital Signs Temperature 97.0 F L 11/08/17 14:38 Pulse Rate 76 11/09/17 22:17 Respiratory Rate 18 11/10/17 03:30 Blood Pressure 114/68 11/09/17 22:17 O2 Sat by Pulse Oximetry (%) Laboratory Tests 11/05/17 11/10/17 11/10/17 23:28 10:20 10:20 WBC 7.6 RBC 4.22 Hgb 11.3 L Hct 35.2 L MCV 83.5 MCH 26.8 MCHC 32.1 RDW 13.8 Plt Count 240 MPV 8.5 Sodium 139 Potassium 4.5 Chloride 104 Carbon Dioxide 30 Anion Gap 5 L BUN 18 Creatinine 0.9 Creat Clearance w eGFR > 60 Random Glucose 78 Calcium 8.2 L Total Bilirubin 0.2 AST 13 L ALT 20 Alkaline Phosphatase 56 Total Protein 6.7 Albumin 2.7 L Urine Color Dkyellow Urine Appearance Slcloudy Urine pH 5.0 Ur Specific [place] 1.032 Urine Protein Negative Urine Glucose (UA) Negative Urine Ketones Negative Urine Blood Negative Urine Nitrite Negative Urine Bilirubin Negative Urine Urobilinogen 2.0 Ur Leukocyte Esterase Negative RPR Titer 11/10/17 10:20 WBC RBC Hgb Hct MCV MCH MCHC RDW Plt Count MPV Sodium Potassium Chloride Carbon Dioxide Anion Gap BUN Creatinine Creat Clearance w eGFR Random Glucose Calcium Total Bilirubin AST ALT Alkaline Phosphatase Total Protein Albumin Urine Color Urine Appearance Urine pH Ur Specific [place] Urine Protein Urine Glucose (UA) Urine Ketones Urine Blood Urine Nitrite Urine Bilirubin Urine Urobilinogen Ur Leukocyte Esterase RPR Titer Nonreactive LABS NOTED. Assessment: 11/10/17 21:56 COMPLETION OF DETOX REGIMEN. Plan: PATIENT SCHEDULED FOR DISCHARGE FROM DETOX UNIT TODAY.
--- NOTE | 2017-11-10 22:01 | DS ---
[facility] Detox Discharge Summary Admission Date: 11/05/17 Discharge Date: 11/10/17 - History Present History: Cannabis Dependence, Cocaine Dependence, Opioid Dependence Additional Comments: NO BEDS ARE AVAILABLE AT [facility] AT THIS TIME, PATIENT WILL RETURN HOME FOR TIME BERING, THEN WILL CONTACT [facility] WITH IN THE THE NEXT FEW DAYS TO INQUIRE ABOUT POSSIBLE REHAB ADMISSION AT THAT TIME. PATIENT ALSO ADVISED TO CONSIDER LOCAL 12-STEP / NA OUTPATIENT SUPPORT GROUPS FOR AFTERCARE. PATIENT WAS DISCHARGED FROM DETOX UNIT IN STABLE MEDICAL CONDITION. Pertinent Past History: History of Depression, Nicotine Dependence, Insomnia. - Physical Exam Results Vital Signs: Vital Signs Temperature 97.0 F L 11/08/17 14:38 Pulse Rate 76 11/09/17 22:17 Respiratory Rate 18 11/10/17 03:30 Blood Pressure 114/68 11/09/17 22:17 O2 Sat by Pulse Oximetry (%) Pertinent Admission Physical Exam Findings: WITHDRAWAL SYMPTOMS. Laboratory Tests 11/05/17 11/10/17 11/10/17 23:28 10:20 10:20 WBC 7.6 RBC 4.22 Hgb 11.3 L Hct 35.2 L MCV 83.5 MCH 26.8 MCHC 32.1 RDW 13.8 Plt Count 240 MPV 8.5 Sodium 139 Potassium 4.5 Chloride 104 Carbon Dioxide 30 Anion Gap 5 L BUN 18 Creatinine 0.9 Creat Clearance w eGFR > 60 Random Glucose 78 Calcium 8.2 L Total Bilirubin 0.2 AST 13 L ALT 20 Alkaline Phosphatase 56 Total Protein 6.7 Albumin 2.7 L Urine Color Dkyellow Urine Appearance Slcloudy Urine pH 5.0 Ur Specific [place] 1.032 Urine Protein Negative Urine Glucose (UA) Negative Urine Ketones Negative Urine Blood Negative Urine Nitrite Negative Urine Bilirubin Negative Urine Urobilinogen 2.0 Ur Leukocyte Esterase Negative RPR Titer 11/10/17 10:20 WBC RBC Hgb Hct MCV MCH MCHC RDW Plt Count MPV Sodium Potassium Chloride Carbon Dioxide Anion Gap BUN Creatinine Creat Clearance w eGFR Random Glucose Calcium Total Bilirubin AST ALT Alkaline Phosphatase Total Protein Albumin Urine Color Urine Appearance Urine pH Ur Specific [place] Urine Protein Urine Glucose (UA) Urine Ketones Urine Blood Urine Nitrite Urine Bilirubin Urine Urobilinogen Ur Leukocyte Esterase RPR Titer Nonreactive LABS NOTED. - Treatment Hospital Course: Detox Protocol Followed, Detoxed Safely, Responded well, Discharged Condition Good, Rehab Referral Accepted Patient has Accepted a Rehab Referral to: [facility]le[facility] - Medication Discharge Medications: Ambulatory Orders traZODone HCL [Trazodone HCl] 50 mg PO 11/09/17 - Diagnosis (1) Cannabis dependence Status: Chronic (2) Cocaine dependence Status: Chronic Qualifiers: Substance use status: uncomplicated Qualified Code(s): F14.20 - Cocaine dependence, uncomplicated (3) Depressed affect Status: Suspected (4) Insomnia Status: Suspected Qualifiers: Insomnia type: unspecified Qualified Code(s): G47.00 - Insomnia, unspecified (5) Opioid dependence with withdrawal Status: Acute (6) Nicotine dependence Status: Chronic Qualifiers: Nicotine product type: cigarettes Substance use status: in withdrawal Qualified Code(s): F17.213 - Nicotine dependence, cigarettes, with withdrawal (7) Substance induced mood disorder Status: Acute (8) Substance-induced sleep disorder Status: Acute - AMA Did Patient Leave Against Medical Advice: No
== END 2017-11-10 09:10 | disposition home or self-care (01) | DRG 773 ==
LOC: YASAS 14:41 → Y3N 17:43
PROVIDERS: ADMIT Surgery; ATTEND Surgery
PROC: HZ2ZZZZ Detoxification Services for Substance Abuse Treatment (ICD-10-PCS; principal; 2017-11-05)
DX: F11.23 Opioid dependence with withdrawal (principal); F14.20 Cocaine dependence, uncomplicated; F12.20 Cannabis dependence, uncomplicated; F17.213 Nicotine dependence, cigarettes, with withdrawal; F32.9 Major depressive disorder, single episode, unspecified; F19.24 Other psychoactive substance dependence with psychoactive substance-induced mood disorder; F19.282 Other psychoactive substance dependence with psychoactive substance-induced sleep disorder; G47.00 Insomnia, unspecified; Z88.0 Allergy status to penicillin; Z91.5 Personal history of self-harm
CPT/HCPCS: 36415; 80053; 81003; 85027; 86593; 93005; 93010; J0475

== ENCOUNTER 2018-04-30 12:16 | Inpatient (IN) | payer OTHER ==
[2018-04-30 13:16] VITALS: BMI 29.7
--- NOTE | 2018-04-30 15:55 | HP ---
COWS - Scale Resting Pulse: 0= [place] 80 or Below Sweatin= Chills/Flushing Restless Observation: 3= Extraneous Movement Pupil Size: 0= Normal to Room Light Bone or Joint Aches: 4=Acute Joint/Muscle Pain Runny Nose/ Eye Tearin= Runny Nose/Eyes GI Upset > 30mins: 1= Stomach Cramp Tremor Observation: 0= None Yawning Observation: 0= None Anxiety or Irritability: 2=Irritable/Anxious Goose Flesh Skin: 0=Smooth Skin COWS Score: 13 CIWA Score - Admission Criteria OASAS Guidelines: Admission for Medically Managed Detox: Requires at least one of the followin. CIWA greater than 12 2. Seizures within the past 24 hours 3. Delirium tremens within the past 24 hours 4. Hallucinations within the past 24 hours 5. Acute intervention needed for co occurring medical disorder 6. Acute intervention needed for co occurring psychiatric disorder 7. Severe withdrawal that cannot be handled at a lower level of care (continued vomiting, continued diarrhea, abnormal vital signs) requiring intravenous medication and/or fluids 8. Admission ROS [facility] Allergies/Adverse Reactions: Allergies Allergy/AdvReac Type Severity Reaction Status Date / Time penicillin G Allergy Severe Hives Verified 04/30/18 15:02 History of Present Illness: patient here requesting detox from opiate use, reports 10 bags/day IVDU , needles from pharmacy , denies sharing , admits to occasional re-using needles , abscess right biceps in 2018 went to [facility] . Latest use this morning 1 bag IVDU , denies OD . First age of use 26 , longest sobriety 1 year " fighting the urge ", relapse w/ in family 2018 . reports 100- lbs wt loss in 1 yr w/ substance use . denies cocaine use denies fentanyl use tobacco - 5-6 cigs/day This report was requested by: Mona Poon | Reference #: [id number] Others' Prescriptions Patient Name: David Deng Date: 1980 Address: [address] [place] [address] Sex: Male Rx Written Rx Dispensed Drug Quantity Days Supply Prescriber Name 09/14/2017 09/14/2017 chlordiazepoxide 25 mg capsule 8 2 Sergio Matos 08/10/2017 08/10/2017 chlordiazepoxide 25 mg capsule 8 2 Cergnul , Loyda G MD PMHX :denies PSHX : I & D of abscess PSych : denies meds : denies SHX : lives w/ mother , unemployed , legal - denies Exam Limitations: No Limitations - Ebola screening Have you traveled outside of the country in the last 21 days: No Have you had contact with anyone from an Ebola affected area: No Have you been sick,other than usual withdrawal symptoms: No Do you have a fever: No - Review of Systems Constitutional: See HPI EENT: reports: See HPI, Other (denies vision loss , denies dysphagia) Respiratory: reports: No Symptoms reported Cardiac: reports: No Symptoms Reported GI: reports: See HPI, Constipated, Abdominal cramping : reports: No Symptoms Reported Musculoskeletal: reports: See HPI Integumentary: reports: Other (IVDU hands , legs below knees, feet , arms , hands) Neuro: reports: No Symptoms reported Endocrine: reports: No Symptoms Reported Psychiatric: reports: Orientated x3 Patient History - Patient Medical History Hx Anemia: No Hx Asthma: No Hx Chronic Obstructive Pulmonary Disease (COPD): No Hx Cancer: No Hx Cardiac Disorders: No Hx Congestive Heart Failure: No Hx Hypertension: No Hx Hypercholesterolemia: No Hx Pacemaker: No HX Cerebrovascular Accident: No Hx Seizures: No Hx Dementia: No Hx Diabetes: No Hx Gastrointestinal Disorders: No Hx Liver Disease: No Hx Genitourinary Disorders: No Hx Sexually Transmitted Disorders: No Hx Renal Disease (ESRD): No Hx Thyroid Disease: No Hx Human Immunodeficiency Virus (HIV): No Hx Hepatitis C: No Hx Depression: Yes Hx Suicide Attempt: No Hx Bipolar Disorder: No Hx Schizophrenia: No - Patient Surgical History Past Surgical History: No Hx Neurologic Surgery: No Hx Cataract Extraction: No Hx Cardiac Surgery: No Hx Lung Surgery: No Hx Breast Surgery: No Hx Breast Biopsy: No Hx Abdominal Surgery: No Hx Appendectomy: No Hx Cholecystectomy: No Hx Genitourinary Surgery: No Hx Section: No Hx Orthopedic Surgery: No Anesthesia Reaction: No - PPD History Previous Implant?: Yes Documented Results: Negative w/proof Implanted On Prior [facility] Admission?: Yes Date: 08/05/17 Results: 0 mm - Smoking Cessation Smoking history: Current every day smoker Have you smoked in the past 12 months: Yes Aproximately how many cigarettes per day: 10 Cigars Per Day: 0 Hx Chewing Tobacco Use: No Initiated information on smoking cessation: No - Substances Abused Heroin Route: Injection Frequency: Daily Amount used: 10 bags Age of first use: 26 Date of Last Use: 04/30/18 Marijuana/Hashish Route: Smoking Frequency: Daily Amount used: 1-2 joint Age of first use: 19 Date of Last Use: 04/29/18 Family Disease History - Family Disease History Family Disease History: Diabetes: Mother (A & W 63), Other: Father (/ killed), Brother (1 A & W), Sister (3 A & W ), Son (A & W ), Daughter (A & W ) Admission Physical Exam [facility] - Vital Signs Vital Signs: Vital Signs - 24 hr 04/30/18 13:15 Temperature 96.8 F L Pulse Rate 70 Respiratory 20 Rate Blood Pressure 124/89 - Physical General Appearance: Yes: Mild Distress HEENTM: Yes: EOMI, Hearing grossly Normal, Normocephalic, Normal Voice Respiratory: Yes: Chest Non-Tender, Lungs Clear, Normal Breath Sounds Neck: Yes: No masses,lesions,Nodules, Trachea in good position Cardiology: Yes: Regular Rhythm, Regular Rate, S1, S2 Abdominal: Yes: Normal Bowel Sounds, Soft Genitourinary: Yes: Hesitency Back: Yes: Normal Inspection Musculoskeletal: Yes: Gait Steady Extremities: Yes: Normal Capillary Refill, Normal Range of Motion, Non-Tender Neurological: Yes: Motor Strength 5/5 Integumentary: Yes: Track Qureshi - Diagnostic (1) Opioid dependence with withdrawal Current Visit: No Status: Acute (2) Cannabis dependence Current Visit: No Status: Chronic (3) Nicotine dependence Current Visit: No Status: Chronic Qualifiers: Nicotine product type: cigarettes Substance use status: in withdrawal Qualified Code(s): F17.213 - Nicotine dependence, cigarettes, with withdrawal (4) Weight loss Current Visit: No Status: Chronic Comment: ensure BHS Breath Alcohol Content Breath Alcohol Content: 0 Urine Drug Screen - Results Drug Screen Negative: No Urine Drug Screen Results: THC-Marijuana, CASTRO-Cocaine, OPI-Opiates, FEN-Fentanyl Inpatient Rehab Admission - Rehab Decision to Admit Inpatient rehab admission?: No
[2018-04-30] MEDS ORDERED: MAGNESIUM HYDROX 2400MG/30ML ORAL SUSPENSION 30 ML CUP PO PRN (16:10)
[2018-04-30] MEDS ORDERED: IBUPROFEN 400 MG TABLET (FP) PO PRN (16:10)
[2018-04-30] MEDS ORDERED: ACETAMINOPHEN 325 MG TABLET (FP) PO PRN (16:10)
[2018-04-30] MEDS ORDERED: MAGNESIUM CITRATE 300 ML BOTTLE PO PRN (16:10)
[2018-04-30] MEDS ORDERED: NICOTINE POLACRILEX 2 MG GUM BC PRN (16:10)
[2018-04-30] MEDS ORDERED: MAG HYDROX/AL HYDROX/SIMETH 30 ML UNIT-DOSE CUP PO PRN (16:10)
[2018-04-30] MEDS ORDERED: MENTHOL/PHENOL 1 EACH UD MM PRN (16:10)
[2018-04-30] MEDS ORDERED: METHADONE HCL 10 MG TABLET (FOR DETOX USE ONLY) PO ONE ×2 (19:00→23:00)
[2018-04-30] MEDS: THIAMINE HCL 100 MG TABLET (FP) PO SCH (22:13)
[2018-04-30] MEDS: SULFAMETHOXAZOLE/TRIMETHOPRIM 800MG/160MG D.S. TABLET PO SCH (22:13)
[2018-04-30] MEDS: QUEtiapine FUMARATE 25 MG TABLET (FP) PO SCH (22:14)
[2018-04-30] MEDS: MELATONIN 5 MG TABLETS PO PRN (22:16)
[2018-05-01] MEDS ORDERED: METHADONE HCL 10 MG TABLET (FOR DETOX USE ONLY) PO ONE (10:00)
[2018-05-01] MEDS: PRENATAL VITAMINS W/ FOLIC ACID TABLET (FP) PO SCH (10:42)
[2018-05-01] MEDS: SULFAMETHOXAZOLE/TRIMETHOPRIM 800MG/160MG D.S. TABLET PO SCH ×2 (10:42→21:44)
--- NOTE | 2018-05-01 13:05 | PN ---
BHS COWS - Scale Resting Pulse: 0= [place] 80 or Below Sweatin= Chills/Flushing Restless Observation: 1= Difficult to Sit Still Pupil Size: 1= Pupils >than Normal Bone or Joint Aches: 2= Severe Diffuse Aches Runny Nose/ Eye Tearin= Nasal Congestion GI Upset > 30mins: 1= Stomach Cramp Tremor Observation of Outstretched Hands: 1= Tremor [place], Not Seen Yawning Observation: 1= 1-2x During Session Anxiety or Irritability: 2=Irritable/Anxious Goose Flesh Skin: 0=Smooth Skin COWS Score: 11 S Progress Note (SOAP) Subjective: body aches tremor muscle aches Objective: 05/01/18 13:07 Vital Signs Temperature 96 F L 05/01/18 09:10 Pulse Rate 65 05/01/18 10:43 Respiratory Rate 18 05/01/18 10:43 Blood Pressure 116/72 05/01/18 10:43 O2 Sat by Pulse Oximetry (%) lab pending Assessment: 05/01/18 13:11 withdrawal sx Plan: continue detox
[2018-05-01] MEDS ORDERED: HYDROCORTISONE 1% TOPICAL OINT 30 GM TUBE TP PRN (16:54)
[2018-05-01] MEDS ORDERED: hydrOXYzine PAMOATE 50 MG CAPSULE (FP) PO PRN (20:28)
[2018-05-01] MEDS ORDERED: cloNIDine HCL 0.1 MG TABLET PO PRN (20:28)
[2018-05-01] MEDS: diazePAM 5 MG TABLET PO PRN (21:44)
[2018-05-01] MEDS: THIAMINE HCL 100 MG TABLET (FP) PO SCH (21:44)
[2018-05-01] MEDS: MELATONIN 5 MG TABLETS PO PRN (21:44)
[2018-05-01] MEDS: QUEtiapine FUMARATE 25 MG TABLET (FP) PO SCH (21:44)
[2018-05-01 22:13] VITALS: TEMP 98.1
[2018-05-02 09:39] VITALS: BP 107/55; PULSE 53
[2018-05-02] MEDS ORDERED: METHADONE HCL 5 MG TABLET (FOR DETOX USE ONLY) PO ONE (10:00)
[2018-05-02] MEDS: diazePAM 5 MG TABLET PO PRN (10:20)
[2018-05-02] MEDS: PRENATAL VITAMINS W/ FOLIC ACID TABLET (FP) PO SCH (10:20)
[2018-05-02] MEDS: SULFAMETHOXAZOLE/TRIMETHOPRIM 800MG/160MG D.S. TABLET PO SCH (10:20)
[2018-05-02 10:51] LABS: ALBUMIN 3.1 g/dl (3.4-5.0); ALK PHOS 70 U/L (45-117); ANION GAP 7 MMOL/L (8-16); BILIRUBIN,TOTAL 0.4 mg/dL (0.2-1); BLOOD UREA NITROGEN 11 mg/dL (7-18); CALCIUM 8.9 mg/dL (8.5-10.1); CHLORIDE 105 mmol/L (98-107); CO2 26 mmol/L (21-32); CREATININE 0.9 mg/dL (0.55-1.3); GLUCOSE,RANDOM 78 mg/dL (74-106); POTASSIUM 4.7 mmol/L (3.5-5.1); SGOT/AST 16 U/L (15-37); SGPT/ALT 22 U/L (13-61); SODIUM 138 mmol/L (136-145); TOT PROT 7.4 g/dl (6.4-8.2)
[2018-05-02 10:53] LABS: HEMATOCRIT 33.3 % (35.4-49); MCH 27.9 pg (25.7-33.7); MCHC 33.2 g/dl (32.0-35.9); MEAN PLT VOLUME 8.5 fl (7.5-11.1); PLATELET COUNT 220 K/MM3 (134-434); RBC 3.96 M/mm3 (4.00-5.60); RDW 16.2 % (11.9-15.9); WHITE BLOOD COUNT 7.5 K/mm3 (4.0-10.0)
--- NOTE | 2018-05-02 14:51 | DS ---
[facility] Detox Discharge Summary Admission Date: 04/30/18 Discharge Date: 05/02/18 - History Present History: Opioid Dependence Additional Comments: 38 years old male admitted on 04/30/18 for opiate withdrawal stabilization insists to leave [facility] detox that patient preferred [facility] that [facility] detox and rehab patient is alert no acute distress denies suicidal ideation - Physical Exam Results Vital Signs: Vital Signs Temperature 98.1 F 05/01/18 22:12 Pulse Rate 53 L 05/02/18 09:37 Respiratory Rate 18 05/02/18 09:37 Blood Pressure 107/55 L 05/02/18 09:37 O2 Sat by Pulse Oximetry (%) Pertinent Admission Physical Exam Findings: opiate withdrawal sx Laboratory Last Values WBC 7.5 K/mm3 (4.0-10.0) 05/02/18 07:00 RBC 3.96 M/mm3 (4.00-5.60) L 05/02/18 07:00 Hgb 11.0 GM/dL (11.7-16.9) L 05/02/18 07:00 Hct 33.3 % (35.4-49) L 05/02/18 07:00 MCV 84.0 fl (80-96) 05/02/18 07:00 MCH 27.9 pg (25.7-33.7) 05/02/18 07:00 MCHC 33.2 g/dl (32.0-35.9) 05/02/18 07:00 RDW 16.2 % (11.9-15.9) H 05/02/18 07:00 Plt Count 220 K/MM3 (134-434) 05/02/18 07:00 MPV 8.5 fl (7.5-11.1) 05/02/18 07:00 Sodium 138 mmol/L (136-145) 05/02/18 07:00 Potassium 4.7 mmol/L (3.5-5.1) 05/02/18 07:00 Chloride 105 mmol/L (98-107) 05/02/18 07:00 Carbon Dioxide 26 mmol/L (21-32) 05/02/18 07:00 Anion Gap 7 MMOL/L (8-16) L 05/02/18 07:00 BUN 11 mg/dL (7-18) 05/02/18 07:00 Creatinine 0.9 mg/dL (0.55-1.3) 05/02/18 07:00 Creat Clearance w eGFR > 60 (>60) 05/02/18 07:00 Random Glucose 78 mg/dL (74-106) 05/02/18 07:00 Calcium 8.9 mg/dL (8.5-10.1) 05/02/18 07:00 Total Bilirubin 0.4 mg/dL (0.2-1) 05/02/18 07:00 AST 16 U/L (15-37) 05/02/18 07:00 ALT 22 U/L (13-61) 05/02/18 07:00 Alkaline Phosphatase 70 U/L (45-117) 05/02/18 07:00 Total Protein 7.4 g/dl (6.4-8.2) 05/02/18 07:00 Albumin 3.1 g/dl (3.4-5.0) L 05/02/18 07:00 RPR Titer Nonreactive (NONREACTIVE) 05/02/18 07:00 lab noted - Treatment Hospital Course: Detox Protocol Followed, Responded well Patient has Accepted a Rehab Referral to: [facility] - Medication Discharge Medications: Ambulatory Orders NK [No Known Home Medication] 04/30/18 - Diagnosis (1) Opioid dependence with withdrawal Status: Acute (2) Substance induced mood disorder Status: Suspected (3) Nicotine dependence Status: Acute Qualifiers: Nicotine product type: cigarettes Substance use status: in withdrawal Qualified Code(s): F17.213 - Nicotine dependence, cigarettes, with withdrawal - AMA Did Patient Leave Against Medical Advice: Yes
[2018-05-03] MEDS ORDERED: METHADONE HCL 10 MG TABLET (FOR DETOX USE ONLY) PO ONE (10:00)
[2018-05-04] MEDS ORDERED: METHADONE HCL 5 MG TABLET (FOR DETOX USE ONLY) PO ONE (06:00)
== END 2018-05-02 12:02 | disposition left against medical advice (07) | DRG 770 ==
LOC: YASAS 12:16 → Y3N 17:24
PROVIDERS: ADMIT Surgery; ATTEND Surgery
PROC: HZ2ZZZZ Detoxification Services for Substance Abuse Treatment (ICD-10-PCS; principal; 2018-04-30)
DX: F11.23 Opioid dependence with withdrawal (principal); F12.20 Cannabis dependence, uncomplicated; F17.213 Nicotine dependence, cigarettes, with withdrawal; F19.24 Other psychoactive substance dependence with psychoactive substance-induced mood disorder; Z88.0 Allergy status to penicillin
CPT/HCPCS: 36415; 80053; 85027; 86593; J0735

== ENCOUNTER 2018-08-14 11:24 | Inpatient (IN) | payer OTHER ==
[2018-08-14 15:18] VITALS: BMI 27.3
--- NOTE | 2018-08-14 16:47 | HP ---
COWS - Scale Resting Pulse: 1= [place] 81-100 (87) Sweatin= Chills/Flushing Restless Observation: 5= Unable to Sit Still Pupil Size: 0= Normal to Room Light Bone or Joint Aches: 4=Acute Joint/Muscle Pain Runny Nose/ Eye Tearin= Runny Nose/Eyes GI Upset > 30mins: 1= Stomach Cramp Tremor Observation: 1= Tremor Leon, Not Seen Yawning Observation: 1= 1-2x During Session Anxiety or Irritability: 2=Irritable/Anxious Goose Flesh Skin: 0=Smooth Skin COWS Score: 18 CIWA Score - Admission Criteria OASAS Guidelines: Admission for Medically Managed Detox: Requires at least one of the followin. CIWA greater than 12 2. Seizures within the past 24 hours 3. Delirium tremens within the past 24 hours 4. Hallucinations within the past 24 hours 5. Acute intervention needed for co occurring medical disorder 6. Acute intervention needed for co occurring psychiatric disorder 7. Severe withdrawal that cannot be handled at a lower level of care (continued vomiting, continued diarrhea, abnormal vital signs) requiring intravenous medication and/or fluids 8. Admission ROS [facility] Chief Complaint: HERE FOR DETOX. C/O WITHDRAWAL SX'S Allergies/Adverse Reactions: Allergies Allergy/AdvReac Type Severity Reaction Status Date / Time penicillin G Allergy Severe Difficulty Verified 08/14/18 15:10 Breathing History of Present Illness: 89 Y.O. MALE WITH OPIOID DEPENDENCE HERE FOR DETOX. CLIENT IS KNOWN TO THIS PROGRAM. LAST HERE 04/2018. PRESENTS TODAY WITH C/O WITHDRAWAL SX'S. COWS 18. HIS DRUG OF CHOICE IS HEROINE DAILY USE VIA IV. LAST USE LAST NIGHT. HE ALSO ABUSES COCAINE AND CANNABIS. REPORTS LONGEST CLEAN TIME 1 YEAR. RELAPSING 4 MONTHS AGO. REPORTS DRUG OVERDOSE X 2, PRESENTLY DENIES SI/HI/AVH. DOMICILED, UNEMPLOYED, DENIES LEGALS Exam Limitations: No Limitations - Ebola screening Have you traveled outside of the country in the last 21 days: No (N) Have you had contact with anyone from an Ebola affected area: No Do you have a fever: No - Review of Systems Constitutional: Chills, Loss of Appetite, Malaise, Night Sweats, Changes in sleep EENT: reports: Nose Congestion, Other (RUNNY NOS/WATERY EYES) Respiratory: reports: No Symptoms reported Cardiac: reports: No Symptoms Reported GI: reports: Nausea, Poor Appetite, Poor Fluid Intake, Abdominal cramping : reports: No Symptoms Reported Musculoskeletal: reports: Back Pain Integumentary: reports: Erythema (ABCESS TO R FOREARM RLE AND LEFT ANKLE), Sweating Neuro: reports: Headache, Tremors Endocrine: reports: No Symptoms Reported Hematology: reports: No Symptoms Reported Psychiatric: reports: Orientated x3, Agitated (IRRITABLE), Anxious, Depressed Other Systems: Reviewed and Negative Patient History - Patient Medical History Hx Anemia: No Hx Asthma: No Hx Chronic Obstructive Pulmonary Disease (COPD): No Hx Cancer: No Hx Cardiac Disorders: No Hx Congestive Heart Failure: No Hx Hypertension: No Hx Hypercholesterolemia: No Hx Pacemaker: No HX Cerebrovascular Accident: No Hx Seizures: No Hx Dementia: No Hx Diabetes: No Hx Gastrointestinal Disorders: No Hx Liver Disease: No Hx Genitourinary Disorders: No Hx Sexually Transmitted Disorders: No Hx Renal Disease (ESRD): No Hx Thyroid Disease: No Hx Human Immunodeficiency Virus (HIV): No Hx Hepatitis C: No Hx Depression: Yes Hx Suicide Attempt: No Hx Bipolar Disorder: No Hx Schizophrenia: No - Patient Surgical History Past Surgical History: No Hx Neurologic Surgery: No Hx Cataract Extraction: No Hx Cardiac Surgery: No Hx Lung Surgery: No Hx Breast Surgery: No Hx Breast Biopsy: No Hx Abdominal Surgery: No Hx Appendectomy: No Hx Cholecystectomy: No Hx Genitourinary Surgery: No Hx Section: No Hx Orthopedic Surgery: No Anesthesia Reaction: No - PPD History Previous Implant?: Yes Documented Results: Negative w/proof Implanted On Prior [facility] Admission?: Yes Date: 08/05/17 Results: 0 mm PPD to be Administered?: Yes - Smoking Cessation Smoking history: Current every day smoker Have you smoked in the past 12 months: Yes Aproximately how many cigarettes per day: 10 Cigars Per Day: 0 Hx Chewing Tobacco Use: No Initiated information on smoking cessation: Yes 'Breaking Loose' booklet given: 08/14/18 - Substance & Tx. History Hx Alcohol Use: No Hx Substance Use: Yes Substance Use Type: Cocaine, Heroin, Marijuana Hx Substance Use Treatment: Yes ([facility]) - Substances abused Heroin Substance route: Injection Frequency: Daily Amount used: 10-20 bags Age of first use: 31 Date of last use: 08/13/18 Marijuana/Hashish Substance route: Smoking Frequency: Daily Amount used: 1 JOINT Age of first use: 19 Date of last use: 08/13/18 Cocaine Substance route: Smoking Frequency: 1-2 times per week Amount used: $10 Age of first use: 34 Date of last use: 08/13/18 Family Disease History - Family Disease History Family Disease History: Diabetes: Mother (A & W 63), Other: Father (/ killed), Brother (1 A & W), Sister (3 A & W ), Son (A & W ), Daughter (A & W ) Admission Physical Exam [facility] - Vital Signs Vital Signs: Vital Signs - 24 hr 08/14/18 15:01 Pulse Rate 87 Respiratory 20 Rate Blood Pressure 121/72 - Physical General Appearance: Yes: Appropriately Dressed, Moderate Distress, Tremorous, Irritable, Sweating, Anxious, Other (malodurous) HEENTM: Yes: EOMI, Normocephalic, Normal Voice, SARAH, Pharynx Normal, Nasal Congestion, Rhinorrhea, Other (watery eyes) Respiratory: Yes: Chest Non-Tender, Lungs Clear, Normal Breath Sounds, No Respiratory Distress, No Accessory Muscle Use Neck: Yes: No masses,lesions,Nodules, Supple, Trachea in good position Breast: Yes: Breast Exam Deferred Cardiology: Yes: Regular Rate, S1, S2, Irregular Abdominal: Yes: Non Tender, Soft, Increased Bowel Sounds Genitourinary: Yes: Within Normal Limits Back: Yes: Normal Inspection Musculoskeletal: Yes: full range of Motion, Gait Steady Extremities: Yes: Normal Capillary Refill, Normal Range of Motion, Non-Tender, Tremors, Erythema (abcess noted to r forearm/rle/and lle) Neurological: Yes: Fully Oriented, Alert, Motor Strength 5/5, Depressed Affect Integumentary: Yes: Erythema, Cold, Moist, Track Qureshi Lymphatic: Yes: Within Normal Limits - Diagnostic (1) At risk for dehydration due to poor fluid intake Current Visit: Yes Status: Acute (2) IVDU (intravenous drug user) Current Visit: Yes Status: Acute (3) Abscess Current Visit: Yes Status: Acute Comment: right calf begin levaquen (4) Opioid dependence with withdrawal Current Visit: Yes Status: Acute (5) Cannabis dependence Current Visit: Yes Status: Acute (6) Cocaine dependence Current Visit: Yes Status: Acute Qualifiers: Substance use status: uncomplicated Qualified Code(s): F14.20 - Cocaine dependence, uncomplicated (7) Depressed affect Current Visit: Yes Status: Acute (8) Substance induced mood disorder Current Visit: Yes Status: Suspected Cleared for Admission [facility] - Detox or Rehab [facility] Level of Care: Medically Managed Detox Regimen/Protocol: Methadone Claeared for Rehab Admission: No Breathalyzer - Breathalyzer Breathalyzer: 0 Urine Drug Screen - Test Device Lot number: [id number] Expiration date: 07/17/19 - Control Is test valid?: Yes - Results Drug screen NEGATIVE: No Urine drug screen results: THC-Marijuana, CASTRO-Cocaine, MOP-Opiates Inpatient Rehab Admission - Rehab Decision to Admit Inpatient rehab admission?: No
[2018-08-14] MEDS ORDERED: MAG HYDROX/AL HYDROX/SIMETH 30 ML UNIT-DOSE CUP PO PRN (17:02)
[2018-08-14] MEDS ORDERED: hydrOXYzine PAMOATE 25 MG CAPSULE (FP) PO PRN (17:02)
[2018-08-14] MEDS ORDERED: BISMUTH SUBSALICYLATE 524 MG/30 ML UD PO PRN (17:02)
[2018-08-14] MEDS ORDERED: P-EPHED 60MG/TRIPROLIDI 2.5MG TABLET PO PRN (17:02)
[2018-08-14] MEDS ORDERED: guaiFENesin 200 MG/10 ML 10 ML UNIT-DOSE CUPS PO PRN (17:02)
[2018-08-14] MEDS ORDERED: ONDANSETRON *ODT* 4 MG TABLET SL PRN (17:02)
[2018-08-14] MEDS ORDERED: DICYCLOMINE HCL 10 MG CAPSULE PO PRN (17:02)
[2018-08-14] MEDS ORDERED: ACETAMINOPHEN 325 MG TABLET (FP) PO PRN ×2 (17:02)
[2018-08-14] MEDS ORDERED: MAGNESIUM CITRATE 300 ML BOTTLE PO PRN (17:02)
[2018-08-14] MEDS ORDERED: NICOTINE POLACRILEX 2 MG GUM BUC PRN (17:02)
[2018-08-14] MEDS ORDERED: MAGNESIUM HYDROX 2400MG/30ML ORAL SUSPENSION 30 ML CUP PO PRN (17:02)
[2018-08-14] MEDS ORDERED: MENTHOL/PHENOL 1 EACH UD MM PRN (17:02)
[2018-08-14] MEDS ORDERED: cloNIDine HCL 0.1 MG TABLET PO PRN (17:02)
[2018-08-14] MEDS: CEPHALEXIN MONOHYDRATE 500 MG CAPSULE (UD) PO SCH ×2 (18:00→23:33)
[2018-08-14] MEDS ORDERED: METHADONE HCL 10 MG TABLET (FOR DETOX USE ONLY) PO ONE ×2 (18:30→20:00)
[2018-08-14] MEDS: THIAMINE HCL 100 MG TABLET (FP) PO SCH (22:11)
[2018-08-14] MEDS: IBUPROFEN 400 MG TABLET (FP) PO PRN (22:11)
[2018-08-14] MEDS: MELATONIN 5 MG TABLETS PO PRN (22:11)
[2018-08-14] MEDS: METHOCARBAMOL 500 MG TABLET PO PRN (22:12)
[2018-08-14 23:57] LABS: URINE APPEARANCE CLEAR; URINE BILIRUBIN NEGATIVE (NEGATIVE); URINE COLOR YELLOW; URINE GLUCOSE (UA) NEGATIVE (NEGATIVE); URINE KETONE NEGATIVE (NEGATIVE); URINE LEUK ESTERASE NEGATIVE (NEGATIVE); URINE NITRITE NEGATIVE (NEGATIVE); URINE PROTEIN NEGATIVE (NEGATIVE)
[2018-08-15] MEDS: CEPHALEXIN MONOHYDRATE 500 MG CAPSULE (UD) PO SCH ×3 (05:58→18:17)
[2018-08-15] MEDS: IBUPROFEN 400 MG TABLET (FP) PO PRN (05:59)
[2018-08-15] MEDS: METHOCARBAMOL 500 MG TABLET PO PRN ×2 (09:21→19:44)
[2018-08-15] MEDS ORDERED: METHADONE HCL 10 MG TABLET (FOR DETOX USE ONLY) PO ONE (10:00)
[2018-08-15] MEDS: PRENATAL VITAMINS W/ FOLIC ACID TABLET (FP) PO SCH (10:54)
[2018-08-15] MEDS: NICOTINE 14 MG/24 HOURS TOPICAL PATCH TD SCH (10:56)
--- NOTE | 2018-08-15 12:03 | PN ---
[facility]HS COWS - Scale Resting Pulse: 0= [place] 80 or Below Sweatin= Chills/Flushing Restless Observation: 1= Difficult to Sit Still Pupil Size: 1= Pupils >than Normal Bone or Joint Aches: 2= Severe Diffuse Aches Runny Nose/ Eye Tearin= Nasal Congestion GI Upset > 30mins: 2= Nausea/Diarrhea Tremor Observation of Outstretched Hands: 2= Slight Tremor Visible Yawning Observation: 1= 1-2x During Session Anxiety or Irritability: 2=Irritable/Anxious Goose Flesh Skin: 0=Smooth Skin COWS Score: 13 BHS Progress Note (SOAP) Subjective: alert,irritable,anxious,interrupted sleep,pain in the body and back Objective: 08/15/18 12:02 Vital Signs Temperature 97.7 F 08/15/18 09:53 Pulse Rate 64 08/15/18 09:53 Respiratory Rate 18 08/15/18 09:53 Blood Pressure 113/64 08/15/18 09:53 O2 Sat by Pulse Oximetry (%) 08/15/18 12:02 Laboratory Last Values Urine Color Yellow 08/14/18 18:55 Urine Appearance Clear 08/14/18 18:55 Urine pH 7.0 (5.0-8.0) D 08/14/18 18:55 Ur Specific [place] 1.025 (1.010-1.035) 08/14/18 18:55 Urine Protein Negative (NEGATIVE) 08/14/18 18:55 Urine Glucose (UA) Negative (NEGATIVE) 08/14/18 18:55 Urine Ketones Negative (NEGATIVE) 08/14/18 18:55 Urine Blood Negative (NEGATIVE) 08/14/18 18:55 Urine Nitrite Negative (NEGATIVE) 08/14/18 18:55 Urine Bilirubin Negative (NEGATIVE) 08/14/18 18:55 Urine Urobilinogen 1.0 mg/dL (0.2-1.0) 08/14/18 18:55 Ur Leukocyte Esterase Negative (NEGATIVE) 08/14/18 18:55 labs pending Assessment: 08/15/18 12:03 withdrawal symptom Plan: continue detox
--- NOTE | 2018-08-15 12:35 | PN ---
[facility] Progress Note Note: abscess of right wrist 3x3 cms with fluctuation ,has been on keflex,needed incision and drainage,patient to be transferred to er at [facility] ,endorsed to Dr Sakina Uribe
[2018-08-15] MEDS ORDERED: CLINDAMYCIN HCL 300 MG CAPSULE PO SCH (19:00)
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
[2018-08-15] MEDS: MELATONIN 5 MG TABLETS PO PRN (22:14)
[2018-08-15] MEDS: CLINDAMYCIN HCL 150 MG CAPSULE (FP) PO SCH ×2 (22:15→23:40)
[2018-08-15] MEDS: THIAMINE HCL 100 MG TABLET (FP) PO SCH (22:16)
[2018-08-16] MEDS: CLINDAMYCIN HCL 150 MG CAPSULE (FP) PO SCH ×2 (05:58→12:38)
[2018-08-16] MEDS: IBUPROFEN 400 MG TABLET (FP) PO PRN (05:58)
[2018-08-16] MEDS: METHOCARBAMOL 500 MG TABLET PO PRN (05:58)
[2018-08-16] MEDS ORDERED: METHADONE HCL 5 MG TABLET (FOR DETOX USE ONLY) PO ONE (10:00)
[2018-08-16] MEDS ORDERED: METHADONE HCL 10 MG TABLET (FOR DETOX USE ONLY) PO ONE (10:00)
[2018-08-16] MEDS: PRENATAL VITAMINS W/ FOLIC ACID TABLET (FP) PO SCH (10:14)
[2018-08-16] MEDS: NICOTINE 14 MG/24 HOURS TOPICAL PATCH TD SCH (10:14)
[2018-08-16 10:49] LABS: BILIRUBIN,TOTAL 0.5 mg/dL (0.2-1); CALCIUM 8.7 mg/dL (8.5-10.1); CREATININE 0.8 mg/dL (0.55-1.3); TOT PROT 7.8 g/dl (6.4-8.2)
--- NOTE | 2018-08-16 10:52 | PN ---
S COWS - Scale Resting Pulse: 0= [place] 80 or Below Sweatin= Chills/Flushing Restless Observation: 1= Difficult to Sit Still Pupil Size: 1= Pupils >than Normal Bone or Joint Aches: 2= Severe Diffuse Aches Runny Nose/ Eye Tearin= Runny Nose/Eyes GI Upset > 30mins: 2= Nausea/Diarrhea Tremor Observation of Outstretched Hands: 2= Slight Tremor Visible Yawning Observation: 1= 1-2x During Session Anxiety or Irritability: 2=Irritable/Anxious Goose Flesh Skin: 0=Smooth Skin COWS Score: 14 S Progress Note (SOAP) Subjective: alert,irritable,anxious,interrupted sleep,pain in the body and back,had incision and drainage of right wrist at [facility] yesterday Objective: 08/16/18 10:50 Vital Signs Temperature 97.2 F L 08/16/18 10:26 Pulse Rate 61 08/16/18 10:26 Respiratory Rate 17 08/16/18 10:26 Blood Pressure 114/56 L 08/16/18 10:26 O2 Sat by Pulse Oximetry (%) 08/16/18 10:51 Laboratory Last Values Sodium 140 mmol/L (136-145) 08/16/18 07:00 Potassium 4.0 mmol/L (3.5-5.1) 08/16/18 07:00 Chloride 103 mmol/L (98-107) 08/16/18 07:00 Carbon Dioxide 30 mmol/L (21-32) 08/16/18 07:00 Anion Gap 7 MMOL/L (8-16) L 08/16/18 07:00 BUN 11 mg/dL (7-18) 08/16/18 07:00 Creatinine 0.8 mg/dL (0.55-1.3) 08/16/18 07:00 Est GFR (CKD-EPI)AfAm 132.27 08/16/18 07:00 Est GFR (CKD-EPI)NonAf 114.12 08/16/18 07:00 Random Glucose 85 mg/dL (74-106) 08/16/18 07:00 Calcium 8.7 mg/dL (8.5-10.1) 08/16/18 07:00 Total Bilirubin 0.5 mg/dL (0.2-1) 08/16/18 07:00 AST 14 U/L (15-37) L 08/16/18 07:00 ALT 18 U/L (13-61) 08/16/18 07:00 Alkaline Phosphatase 72 U/L (45-117) 08/16/18 07:00 Total Protein 7.8 g/dl (6.4-8.2) 08/16/18 07:00 Albumin 3.0 g/dl (3.4-5.0) L 08/16/18 07:00 Urine Color Yellow 08/14/18 18:55 Urine Appearance Clear 08/14/18 18:55 Urine pH 7.0 (5.0-8.0) D 08/14/18 18:55 Ur Specific [place] 1.025 (1.010-1.035) 08/14/18 18:55 Urine Protein Negative (NEGATIVE) 08/14/18 18:55 Urine Glucose (UA) Negative (NEGATIVE) 08/14/18 18:55 Urine Ketones Negative (NEGATIVE) 08/14/18 18:55 Urine Blood Negative (NEGATIVE) 08/14/18 18:55 Urine Nitrite Negative (NEGATIVE) 08/14/18 18:55 Urine Bilirubin Negative (NEGATIVE) 08/14/18 18:55 Urine Urobilinogen 1.0 mg/dL (0.2-1.0) 08/14/18 18:55 Ur Leukocyte Esterase Negative (NEGATIVE) 08/14/18 18:55 08/16/18 10:52 other labs pending Assessment: 08/16/18 10:52 withdrawal symptom Plan: continue detox
[2018-08-16 10:59] LABS: HEMATOCRIT 34.7 % (35.4-49); HEMOGLOBIN 11.3 GM/dL (11.7-16.9); MCH 27.3 pg (25.7-33.7); MCHC 32.6 g/dl (32.0-35.9); MEAN CELL VOLUME 83.7 fl (80-96); MEAN PLT VOLUME 7.8 fl (7.5-11.1); PLATELET COUNT 295 K/MM3 (134-434); RBC 4.15 M/mm3 (4.00-5.60); RDW 14.6 % (11.9-15.9); WHITE BLOOD COUNT 9.3 K/mm3 (4.0-10.0)
[2018-08-16 14:14] VITALS: BP 117/61; PULSE 60; TEMP 97.6
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
[2018-08-17] MEDS ORDERED: METHADONE HCL 10 MG TABLET (FOR DETOX USE ONLY) PO ONE (10:00)
[2018-08-18] MEDS ORDERED: METHADONE HCL 5 MG TABLET (FOR DETOX USE ONLY) PO ONE (06:00)
== END 2018-08-16 16:51 | disposition left against medical advice (07) | DRG 773 ==
LOC: YASAS 11:24 → Y6N 17:32
PROVIDERS: ADMIT Surgery; ATTEND Surgery
PROC: HZ2ZZZZ Detoxification Services for Substance Abuse Treatment (ICD-10-PCS; principal; 2018-08-14)
DX: F11.23 Opioid dependence with withdrawal (principal); F14.20 Cocaine dependence, uncomplicated; F12.20 Cannabis dependence, uncomplicated; F17.210 Nicotine dependence, cigarettes, uncomplicated; F91.8 Other conduct disorders; F19.24 Other psychoactive substance dependence with psychoactive substance-induced mood disorder; F32.9 Major depressive disorder, single episode, unspecified; R63.8 Other symptoms and signs concerning food and fluid intake; L02.413 Cutaneous abscess of right upper limb; I49.9 Cardiac arrhythmia, unspecified; Z88.0 Allergy status to penicillin; Y04.0XXA Assault by unarmed brawl or fight, initial encounter; Y93.89 Activity, other specified; Y92.238 Other place in hospital as the place of occurrence of the external cause
CPT/HCPCS: 36415; 80053; 81003; 85027; 86593

== ENCOUNTER 2018-08-15 13:37 | Emergency (ER) | payer OTHER | END 2018-08-15 18:17 | disposition home or self-care (01) | LOC: JER 13:37 ==

== ENCOUNTER 2018-10-30 13:42 | Inpatient (IN) | payer OTHER ==
[2018-10-30 16:35] VITALS: BMI 28.3
--- NOTE | 2018-10-30 19:28 | HP ---
COWS - Scale Resting Pulse: 0= [place] 80 or Below Sweatin=Flushed/Facial Moisture Restless Observation: 3= Extraneous Movement Pupil Size: 0= Normal to Room Light Bone or Joint Aches: 1= Mild Discomfort Runny Nose/ Eye Tearin= Runny Nose/Eyes GI Upset > 30mins: 2= Nausea/Diarrhea Tremor Observation: 0= None Yawning Observation: 1= 1-2x During Session Anxiety or Irritability: 2=Irritable/Anxious Goose Flesh Skin: 0=Smooth Skin COWS Score: 13 CIWA Score - Admission Criteria OASAS Guidelines: Admission for Medically Managed Detox: Requires at least one of the followin. CIWA greater than 12 2. Seizures within the past 24 hours 3. Delirium tremens within the past 24 hours 4. Hallucinations within the past 24 hours 5. Acute intervention needed for co occurring medical disorder 6. Acute intervention needed for co occurring psychiatric disorder 7. Severe withdrawal that cannot be handled at a lower level of care (continued vomiting, continued diarrhea, abnormal vital signs) requiring intravenous medication and/or fluids 8. Admission ROS [facility] Allergies/Adverse Reactions: Allergies Allergy/AdvReac Type Severity Reaction Status Date / Time penicillin G Allergy Severe Difficulty Verified 10/30/18 16:35 Breathing History of Present Illness: Patient is a 38yo M with no known PMhx except for Heroin use disorder presenting here for Heroin detox and rehab. Says he uses 10-20 bags a day for 7 years. Last use this morninbags. Says he injects everywhere. says he needs to straighten his life out. Lives with mother. Smokes half pack per day. Does not want nicotine patch. Was here for detox on 08/14-08/16 Exam Limitations: No Limitations - Ebola screening Have you traveled outside of the country in the last 21 days: No Have you had contact with anyone from an Ebola affected area: No Do you have a fever: No - Review of Systems Constitutional: No Symptoms Reported EENT: reports: No Symptoms Reported Respiratory: denies: Cough, Shortness of Breath Cardiac: denies: Chest Pain Neuro: denies: Numbness, Tingling Patient History - Patient Medical History Hx Anemia: No Hx Asthma: No Hx Chronic Obstructive Pulmonary Disease (COPD): No Hx Cancer: No Hx Cardiac Disorders: No Hx Congestive Heart Failure: No Hx Hypertension: No Hx Hypercholesterolemia: No Hx Pacemaker: No HX Cerebrovascular Accident: No Hx Seizures: No Hx Dementia: No Hx Diabetes: No Hx Gastrointestinal Disorders: No Hx Liver Disease: No Hx Genitourinary Disorders: No Hx Sexually Transmitted Disorders: No Hx Renal Disease (ESRD): No Hx Thyroid Disease: No Hx Human Immunodeficiency Virus (HIV): No Hx Hepatitis C: No Hx Depression: Yes Hx Suicide Attempt: No Hx Bipolar Disorder: No Hx Schizophrenia: No - Patient Surgical History Past Surgical History: No Hx Neurologic Surgery: No Hx Cataract Extraction: No Hx Cardiac Surgery: No Hx Lung Surgery: No Hx Breast Surgery: No Hx Breast Biopsy: No Hx Abdominal Surgery: No Hx Appendectomy: No Hx Cholecystectomy: No Hx Genitourinary Surgery: No Hx Section: No Hx Orthopedic Surgery: No Anesthesia Reaction: No - PPD History Date: 08/17/17 Results: 0 mm - Smoking Cessation Smoking history: Current every day smoker Have you smoked in the past 12 months: Yes Aproximately how many cigarettes per day: 10 Cigars Per Day: 0 Hx Chewing Tobacco Use: No Initiated information on smoking cessation: Yes 'Breaking Loose' booklet given: 10/30/18 - Substances abused Heroin Substance route: Injection Frequency: Daily Amount used: 10-20 bags Age of first use: 31 Date of last use: 10/30/18 Marijuana/Hashish Substance route: Smoking Frequency: Daily Amount used: 1 JOINT Age of first use: 19 Date of last use: 10/29/18 Cocaine Substance route: Smoking Frequency: 1-2 times per week Amount used: $10 Age of first use: 34 Date of last use: 08/13/18 Family Disease History - Family Disease History Family Disease History: Diabetes: Mother (A & W 63), Other: Father (/ killed), Brother (1 A & W), Sister (3 A & W ), Son (A & W ), Daughter (A & W ) Admission Physical Exam [facility] - Vital Signs Vital Signs: Vital Signs - 24 hr 10/30/18 16:32 Temperature 97.1 F L Pulse Rate 72 Respiratory 18 Rate Blood Pressure 116/66 - Physical General Appearance: Yes: Within Normal Limits HEENTM: Yes: EOMI Respiratory: Yes: Within Normal Limits, Lungs Clear, No Respiratory Distress, No Accessory Muscle Use Neck: Yes: Supple Abdominal: Yes: Normal Bowel Sounds, Non Tender Neurological: Yes: Other (constricted pupils) Integumentary: Yes: Other (multiple small nodules/abscesses on LLE. no drainage or erythema. no warmth) - Diagnostic (1) Abscess Current Visit: No Status: Acute Comment: right calf begin levaquen (2) Abscess of leg, right Current Visit: No Status: Acute (3) At risk for dehydration due to poor fluid intake Current Visit: No Status: Acute (4) IVDU (intravenous drug user) Current Visit: No Status: Acute (5) Opioid dependence with withdrawal Current Visit: No Status: Acute Breathalyzer - Breathalyzer Breathalyzer: 0 Urine Drug Screen - Test Device Lot number: [id number] Expiration date: 07/17/19 - Control Is test valid?: Yes - Results Drug screen NEGATIVE: No Urine drug screen results: THC-Marijuana, CASTRO-Cocaine, MOP-Opiates Inpatient Rehab Admission - Rehab Decision to Admit Inpatient rehab admission?: No
[2018-10-30] MEDS ORDERED: BISMUTH SUBSALICYLATE 524 MG/30 ML UD PO PRN (19:40)
[2018-10-30] MEDS ORDERED: MAGNESIUM HYDROX 2400MG/30ML ORAL SUSPENSION 30 ML CUP PO PRN (19:40)
[2018-10-30] MEDS ORDERED: MAGNESIUM CITRATE 300 ML BOTTLE PO PRN (19:40)
[2018-10-30] MEDS ORDERED: hydrOXYzine PAMOATE 25 MG CAPSULE (FP) PO PRN (19:40)
[2018-10-30] MEDS ORDERED: MENTHOL/PHENOL 1 EACH UD MM PRN (19:40)
[2018-10-30] MEDS ORDERED: MAG HYDROX/AL HYDROX/SIMETH 30 ML UNIT-DOSE CUP PO PRN (19:40)
[2018-10-30] MEDS ORDERED: METHADONE HCL 10 MG TABLET (FOR DETOX USE ONLY) PO ONE (19:40)
[2018-10-30] MEDS ORDERED: ACETAMINOPHEN 325 MG TABLET (FP) PO PRN ×2 (19:40)
[2018-10-30] MEDS ORDERED: cloNIDine HCL 0.1 MG TABLET PO PRN (19:40)
--- NOTE | 2018-10-30 19:48 | PN ---
Teaching Attending Note Name of Resident: Juliana Ortega ATTENDING PHYSICIAN STATEMENT I saw and evaluated the patient. I reviewed the resident's note and discussed the case with the resident. I agree with the resident's findings and plan as documented. SUBJECTIVE: 38 yo with no medical problems, With OUD, uses IV heroin- last use this morning here for detox- OBJECTIVE: Vital Signs - 24 hr 10/30/18 16:32 Temperature 97.1 F L Pulse Rate 72 Respiratory 18 Rate Blood Pressure 116/66 tremulous agitated ASSESSMENT AND PLAN: pt with OUD- admitted for heroin detox with methadone
[2018-10-30] MEDS: IBUPROFEN 400 MG TABLET (FP) PO PRN (21:14)
[2018-10-30] MEDS: METHOCARBAMOL 500 MG TABLET PO PRN (21:14)
[2018-10-30] MEDS: THIAMINE HCL 100 MG TABLET (FP) PO SCH (21:15)
[2018-10-31] MEDS ORDERED: METHADONE HCL 5 MG TABLET (FOR DETOX USE ONLY) ONE (08:56)
[2018-10-31] MEDS ORDERED: METHADONE HCL 10 MG TABLET (FOR DETOX USE ONLY) ONE (08:56)
[2018-10-31] MEDS ORDERED: METHADONE (DETOX) 20 MG, METHADONE (DETOX) 5 MG PO ONE (10:00)
[2018-10-31] MEDS: PRENATAL VITAMINS W/ FOLIC ACID TABLET (FP) PO SCH (10:26)
--- NOTE | 2018-10-31 10:50 | PN ---
[facility]HS COWS - Scale Resting Pulse: 0= [place] 80 or Below Sweatin= Beads of Sweat on Face Restless Observation: 1= Difficult to Sit Still Pupil Size: 0= Normal to Room Light Bone or Joint Aches: 2= Severe Diffuse Aches Runny Nose/ Eye Tearin= None GI Upset > 30mins: 0= None Tremor Observation of Outstretched Hands: 2= Slight Tremor Visible Yawning Observation: 1= 1-2x During Session Anxiety or Irritability: 2=Irritable/Anxious Goose Flesh Skin: 0=Smooth Skin COWS Score: 11 S Progress Note (SOAP) Subjective: c/o sweats, anxiety, muscle aches, and irritability. Objective: 10/31/18 10:48 Vital Signs 10/31/18 10/31/18 10/31/18 03:34 08:23 09:45 Temperature 98.8 F Pulse Rate 51 L 54 L Respiratory 18 18 20 Rate Blood Pressure 114/63 104/62 Labs pending. Assessment: 10/31/18 10:49 AOX3, in no respiratory distress. Full ROM, ambulating in the unit. withdrawal symptoms. Plan: continue detox.
[2018-10-31] MEDS: MELATONIN 5 MG TABLETS PO PRN (22:03)
[2018-10-31] MEDS: THIAMINE HCL 100 MG TABLET (FP) PO SCH (22:03)
[2018-10-31] MEDS: METHOCARBAMOL 500 MG TABLET PO PRN (22:05)
[2018-10-31] MEDS: IBUPROFEN 400 MG TABLET (FP) PO PRN (22:05)
[2018-11-01] MEDS ORDERED: METHADONE HCL 10 MG TABLET (FOR DETOX USE ONLY) PO ONE (10:00)
[2018-11-01] MEDS: PRENATAL VITAMINS W/ FOLIC ACID TABLET (FP) PO SCH (10:16)
--- NOTE | 2018-11-01 11:48 | PN ---
BHS COWS - Scale Resting Pulse: 0= [place] 80 or Below Sweatin= Beads of Sweat on Face Restless Observation: 1= Difficult to Sit Still Pupil Size: 0= Normal to Room Light Bone or Joint Aches: 1= Mild Discomfort Runny Nose/ Eye Tearin= None GI Upset > 30mins: 0= None Tremor Observation of Outstretched Hands: 2= Slight Tremor Visible Yawning Observation: 1= 1-2x During Session Anxiety or Irritability: 2=Irritable/Anxious Goose Flesh Skin: 0=Smooth Skin COWS Score: 10 BHS Progress Note (SOAP) Subjective: c/o anxiety, irritability, sweats, and chills. Objective: 11/01/18 11:47 Vital Signs 11/01/18 11/01/18 06:00 09:44 Temperature 98.4 F Pulse Rate 54 L 52 L Respiratory 18 18 Rate Blood Pressure 104/59 L 120/60 Assessment: AOX3, in no acute respiratory distress. Full ROM, ambulating in the unit. Withdrawal symptoms. Plan: continue detox.
[2018-11-01] MEDS: METHOCARBAMOL 500 MG TABLET PO PRN (22:12)
[2018-11-01] MEDS: MELATONIN 5 MG TABLETS PO PRN (22:12)
[2018-11-01] MEDS: THIAMINE HCL 100 MG TABLET (FP) PO SCH (22:12)
[2018-11-01] MEDS: IBUPROFEN 400 MG TABLET (FP) PO PRN (22:13)
[2018-11-02] MEDS ORDERED: METHADONE HCL 5 MG TABLET (FOR DETOX USE ONLY) ONE (09:42)
[2018-11-02] MEDS ORDERED: METHADONE HCL 10 MG TABLET (FOR DETOX USE ONLY) ONE (09:42)
[2018-11-02] MEDS ORDERED: METHADONE (DETOX) 10 MG, METHADONE (DETOX) 5 MG PO ONE (10:00)
[2018-11-02] MEDS: PRENATAL VITAMINS W/ FOLIC ACID TABLET (FP) PO SCH (10:09)
[2018-11-02] MEDS: METHOCARBAMOL 500 MG TABLET PO PRN (10:11)
[2018-11-02] MEDS: IBUPROFEN 400 MG TABLET (FP) PO PRN ×2 (10:11→22:04)
--- NOTE | 2018-11-02 12:11 | PN ---
BHS COWS - Scale Resting Pulse: 0= [place] 80 or Below Sweatin= Beads of Sweat on Face Restless Observation: 1= Difficult to Sit Still Pupil Size: 0= Normal to Room Light Bone or Joint Aches: 0= None Runny Nose/ Eye Tearin= None GI Upset > 30mins: 0= None Tremor Observation of Outstretched Hands: 0= None Yawning Observation: 1= 1-2x During Session Anxiety or Irritability: 2=Irritable/Anxious Goose Flesh Skin: 0=Smooth Skin COWS Score: 7 BHS Progress Note (SOAP) Subjective: c/o sweats, anxiety, and irritability. Objective: 11/02/18 12:11 Vital Signs 11/02/18 11/02/18 07:36 09:45 Pulse Rate 42 L 72 Respiratory 18 16 Rate Blood Pressure 111/65 113/72 Assessment: 11/02/18 12:12 AOX3, in no acute distress. Full ROM, ambulating in the unit. Withdrawal symptoms. Plan: continue detox.
[2018-11-02] MEDS: THIAMINE HCL 100 MG TABLET (FP) PO SCH (22:01)
[2018-11-02] MEDS: MELATONIN 5 MG TABLETS PO PRN (22:02)
[2018-11-03] MEDS ORDERED: METHADONE HCL 10 MG TABLET (FOR DETOX USE ONLY) PO ONE (10:00)
[2018-11-03] MEDS: PRENATAL VITAMINS W/ FOLIC ACID TABLET (FP) PO SCH (10:18)
[2018-11-03] MEDS: METHOCARBAMOL 500 MG TABLET PO PRN (10:20)
[2018-11-03] MEDS: IBUPROFEN 400 MG TABLET (FP) PO PRN (10:20)
[2018-11-03 10:58] VITALS: TEMP 97.3
[2018-11-03 13:59] VITALS: BP 128/72; PULSE 56
--- NOTE | 2018-11-03 13:59 | DS ---
[facility] Detox Discharge Summary Admission Date: 10/30/18 Discharge Date: 11/03/18 - History Present History: Cannabis Dependence, Cocaine Dependence, Opioid Dependence - Physical Exam Results Vital Signs: Vital Signs Temperature 97.3 F L 11/03/18 09:57 Pulse Rate 51 L 11/03/18 09:57 Respiratory Rate 18 11/03/18 09:57 Blood Pressure 115/55 L 11/03/18 09:57 O2 Sat by Pulse Oximetry (%) Pertinent Admission Physical Exam Findings: pt arrived in withdrawal labs from 07/2018 are current WNL> - Treatment Hospital Course: Detox Protocol Followed, Detoxed Safely, Responded well, Discharged Condition Good, Rehab Referral Accepted Patient has Accepted a Rehab Referral to: referral provided - Medication Discharge Medications: Ambulatory Orders NK [No Known Home Medication] 10/30/18 - Diagnosis (1) Cannabis dependence Current Visit: Yes Status: Chronic (2) Cocaine dependence Current Visit: Yes Status: Chronic Qualifiers: Substance use status: uncomplicated Qualified Code(s): F14.20 - Cocaine dependence, uncomplicated (3) Depressed affect Current Visit: No Status: Acute (4) IVDU (intravenous drug user) Current Visit: Yes Status: Chronic (5) Nicotine dependence Current Visit: Yes Status: Chronic Qualifiers: Nicotine product type: cigarettes Substance use status: uncomplicated Qualified Code(s): F17.210 - Nicotine dependence, cigarettes, uncomplicated (6) Opioid dependence with withdrawal Current Visit: Yes Status: Chronic (7) Substance-induced sleep disorder Current Visit: No Status: Acute (8) ADD (attention deficit disorder) Current Visit: No Status: Chronic (9) Depression (emotion) Current Visit: No Status: Suspected Qualifiers: Depression Type: dysthymia Qualified Code(s): F34.1 - Dysthymic disorder (10) Insomnia Current Visit: No Status: Suspected Qualifiers: Insomnia type: unspecified Qualified Code(s): G47.00 - Insomnia, unspecified (11) Substance induced mood disorder Current Visit: No Status: Suspected - AMA Did Patient Leave Against Medical Advice: No
[2018-11-04] MEDS ORDERED: METHADONE HCL 5 MG TABLET (FOR DETOX USE ONLY) PO ONE (06:00)
== END 2018-11-03 14:44 | disposition home or self-care (01) | DRG 773 ==
LOC: YASAS 13:42 → Y6N 20:20
PROVIDERS: ADMIT Surgery; ATTEND Surgery
PROC: HZ2ZZZZ Detoxification Services for Substance Abuse Treatment (ICD-10-PCS; principal; 2018-10-30)
DX: F11.23 Opioid dependence with withdrawal (principal); F14.20 Cocaine dependence, uncomplicated; F12.20 Cannabis dependence, uncomplicated; F17.210 Nicotine dependence, cigarettes, uncomplicated; F34.1 Dysthymic disorder; F19.24 Other psychoactive substance dependence with psychoactive substance-induced mood disorder; F19.282 Other psychoactive substance dependence with psychoactive substance-induced sleep disorder; F90.9 Attention-deficit hyperactivity disorder, unspecified type; G47.00 Insomnia, unspecified; L02.415 Cutaneous abscess of right lower limb; Z88.0 Allergy status to penicillin

== ENCOUNTER 2019-10-19 16:39 | Inpatient (IN) | payer OTHER ==
[2019-10-19 17:30] VITALS: BMI 28.3
--- NOTE | 2019-10-19 22:03 | HP ---
COWS - Scale Resting Pulse: 0= [place] 80 or Below Sweatin=Flushed/Facial Moisture Restless Observation: 1= Difficult to Sit Still Pupil Size: 1= Pupils >than Normal Bone or Joint Aches: 4=Acute Joint/Muscle Pain Runny Nose/ Eye Tearin= Runny Nose/Eyes GI Upset > 30mins: 1= Stomach Cramp Tremor Observation: 2= Slight Tremor Visible Yawning Observation: 1= 1-2x During Session Anxiety or Irritability: 2=Irritable/Anxious Goose Flesh Skin: 0=Smooth Skin COWS Score: 16 CIWA Score - Admission Criteria OASAS Guidelines: Admission for Medically Managed Detox: Requires at least one of the followin. CIWA greater than 12 2. Seizures within the past 24 hours 3. Delirium tremens within the past 24 hours 4. Hallucinations within the past 24 hours 5. Acute intervention needed for co occurring medical disorder 6. Acute intervention needed for co occurring psychiatric disorder 7. Severe withdrawal that cannot be handled at a lower level of care (continued vomiting, continued diarrhea, abnormal vital signs) requiring intravenous medication and/or fluids 8. Admitting History and Physical - Smoking History Smoking history: Current every day smoker Have you smoked in the past 12 months: Yes Aproximately how many cigarettes per day: 10 - Alcohol/Substance Use Hx Alcohol Use: No Admission ROS [facility] Chief Complaint: Heroin withdrawal symptoms Allergies/Adverse Reactions: Allergies Allergy/AdvReac Type Severity Reaction Status Date / Time penicillin G Allergy Severe Difficulty Verified 10/30/18 16:35 Breathing History of Present Illness: 39 years old male with about 7 years of intravenous heroin dependence is seeking admission to detox. He has been admitted multiple times, last admission was for the period 10/30/2018 - 11/03/2018 and he reports that he relapsed about 5 months later. He denies medical history, reports psych history of depression, in somnia and denies suicidal ideation at this time. He reports use of 12 bags of heroin daily and history of overdose. He is noted with multiple lower extremities healed wounds from abscess related to intravenous drug use. Exam Limitations: No Limitations - Ebola screening Have you traveled outside of the country in the last 21 days: No Have you had contact with anyone from an Ebola affected area: No Have you been sick,other than usual withdrawal symptoms: No Do you have a fever: No - Review of Systems Constitutional: Chills, Loss of Appetite, Malaise, Night Sweats, Changes in sleep EENT: reports: Nose Congestion Respiratory: reports: No Symptoms reported Cardiac: reports: No Symptoms Reported GI: reports: Nausea, Poor Appetite, Poor Fluid Intake, Abdominal cramping : reports: No Symptoms Reported Musculoskeletal: reports: Back Pain (lower) Integumentary: reports: Dryness, Flushing Neuro: reports: Tremors Endocrine: reports: No Symptoms Reported Hematology: reports: No Symptoms Reported Psychiatric: reports: Mood/Affect Appropiate, Orientated x3, Anxious, Depressed Other Systems: Reviewed and Negative Patient History - Patient Medical History Hx Anemia: No Hx Asthma: No Hx Chronic Obstructive Pulmonary Disease (COPD): No Hx Cancer: No Hx Cardiac Disorders: No Hx Congestive Heart Failure: No Hx Hypertension: No Hx Hypercholesterolemia: No Hx Pacemaker: No HX Cerebrovascular Accident: No Hx Seizures: No Hx Dementia: No Hx Diabetes: No Hx Gastrointestinal Disorders: No Hx Liver Disease: No Hx Genitourinary Disorders: No Hx Sexually Transmitted Disorders: No Hx Renal Disease (ESRD): No Hx Thyroid Disease: No Hx Human Immunodeficiency Virus (HIV): No Hx Hepatitis C: No Hx Depression: Yes Hx Suicide Attempt: No Hx Bipolar Disorder: No Hx Schizophrenia: No - Patient Surgical History Past Surgical History: No Hx Neurologic Surgery: No Hx Cataract Extraction: No Hx Cardiac Surgery: No Hx Lung Surgery: No Hx Abdominal Surgery: No Hx Appendectomy: No Hx Cholecystectomy: No Hx Genitourinary Surgery: No Hx Orthopedic Surgery: No Anesthesia Reaction: No - PPD History Previous Implant?: Yes Documented Results: Negative w/proof Implanted On Prior [facility] Admission?: Yes Date: 08/17/17 Results: 0 mm PPD to be Administered?: Yes - Reproductive History Patient is a Female of Child Bearing Age (11 -55 yrs old): No (Male) - Smoking Cessation Smoking history: Current every day smoker Have you smoked in the past 12 months: Yes Aproximately how many cigarettes per day: 10 Hx Chewing Tobacco Use: No Initiated information on smoking cessation: Yes 'Breaking Loose' booklet given: 10/19/19 - Substance & Tx. History Hx Alcohol Use: No Hx Substance Use: Yes Substance Use Type: Cocaine, Heroin, Marijuana Hx Substance Use Treatment: Yes ([facility]) - Substances abused Heroin Substance route: Injection Frequency: Daily Amount used: 12 bags Age of first use: 32 Date of last use: 10/19/19 Admission Physical Exam [facility] - Vital Signs Vital Signs: Vital Signs - 24 hr 10/19/19 17:28 Temperature 97.7 F Pulse Rate 76 Respiratory 18 Rate Blood Pressure 104/60 - Physical General Appearance: Yes: Moderate Distress, Tremorous, Sweating, Anxious HEENTM: Yes: Within Normal Limits Respiratory: Yes: Lungs Clear, Normal Breath Sounds, No Respiratory Distress Neck: Yes: Within Normal Limits Breast: Yes: Breast Exam Deferred Cardiology: Yes: Within Normal Limits Abdominal: Yes: Normal Bowel Sounds Genitourinary: Yes: Within Normal Limits Back: Yes: Normal Inspection Musculoskeletal: Yes: Back pain Extremities: Yes: Tremors Neurological: Yes: Within Normal Limits Integumentary: Yes: Warm Lymphatic: Yes: Within Normal Limits - Diagnostic (1) Cannabis dependence Current Visit: No Status: Chronic (2) Cocaine dependence Current Visit: No Status: Chronic Qualifiers: Substance use status: uncomplicated Qualified Code(s): F14.20 - Cocaine dependence, uncomplicated (3) IVDU (intravenous drug user) Current Visit: No Status: Chronic (4) Nicotine dependence Current Visit: No Status: Chronic Qualifiers: Nicotine product type: cigarettes Substance use status: uncomplicated Qualified Code(s): F17.210 - Nicotine dependence, cigarettes, uncomplicated (5) Opioid dependence with withdrawal Current Visit: No Status: Chronic (6) Depression (emotion) Current Visit: No Status: Suspected Qualifiers: Depression Type: dysthymia Qualified Code(s): F34.1 - Dysthymic disorder (7) Insomnia Current Visit: No Status: Suspected Qualifiers: Insomnia type: unspecified Qualified Code(s): G47.00 - Insomnia, unspecified Cleared for Admission [facility] - Detox or Rehab [facility] Level of Care: Medically Managed Detox Regimen/Protocol: Methadone Claeared for Rehab Admission: No Breathalyzer - Breathalyzer Breathalyzer: 0 Urine Drug Screen - Test Device Lot number: [id number] Expiration date: 06/24/21 - Control Is test valid?: Yes - Results Drug screen NEGATIVE: No Urine drug screen results: THC-Marijuana, CASTRO-Cocaine, FEN-Fentanyl, MOP-Opiates Inpatient Rehab Admission - Rehab Decision to Admit Inpatient rehab admission?: No
[2019-10-19] MEDS ORDERED: BISMUTH SUBSALICYLATE 524 MG/30 ML UD PO PRN (22:18)
[2019-10-19] MEDS ORDERED: ACETAMINOPHEN 325 MG TABLET (FP) PO PRN ×2 (22:18)
[2019-10-19] MEDS ORDERED: MAGNESIUM HYDROX 2400MG/30ML ORAL SUSPENSION 30 ML CUP PO PRN (22:18)
[2019-10-19] MEDS ORDERED: MENTHOL/PHENOL 1 EACH UD MM PRN (22:18)
[2019-10-19] MEDS ORDERED: cloNIDine HCL 0.1 MG TABLET PO PRN (22:18)
[2019-10-19] MEDS ORDERED: MAGNESIUM CITRATE 300 ML BOTTLE PO PRN (22:18)
[2019-10-19] MEDS ORDERED: NICOTINE POLACRILEX 2 MG GUM BUC PRN (22:18)
[2019-10-19] MEDS ORDERED: MAG HYDROX/AL HYDROX/SIMETH 30 ML UNIT-DOSE CUP PO PRN (22:18)
[2019-10-19] MEDS ORDERED: IBUPROFEN 400 MG TABLET (FP) PO PRN (22:18)
[2019-10-19] MEDS ORDERED: ONDANSETRON *ODT* 4 MG TABLET SL ONE (22:30)
[2019-10-19] MEDS ORDERED: METHADONE HCL 10 MG TABLET (FOR DETOX USE ONLY) PO ONE (22:45)
[2019-10-20] MEDS ORDERED: METHADONE HCL 10 MG TABLET (FOR DETOX USE ONLY) ONE (09:42)
[2019-10-20] MEDS ORDERED: METHADONE HCL 5 MG TABLET (FOR DETOX USE ONLY) ONE (09:42)
[2019-10-20] MEDS ORDERED: METHADONE (DETOX) 20 MG, METHADONE (DETOX) 5 MG PO ONE (10:00)
--- NOTE | 2019-10-20 10:18 | CONSULT ---
[facility] Psychiatric Consult - Data Date of interview: 10/20/19 Admission source: Self-referred Identifying data: Mr Deng is a 39 years old single male, father of 2 children seeking detox treatment for opioid Substance Abuse History: Reports history of heroin use. Refer to addiction counselor's summary for further information Medical History: Unremarkable. Smokes 10 cigarettes daily Psychiatric History: Patient was approached at bedside. 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
--- NOTE | 2019-10-20 10:26 | EKG ---
Test Reason : Blood Pressure : / mmHG Vent. Rate : 056 BPM Atrial Rate : 056 BPM P-R Int : 164 ms QRS Dur : 090 ms QT Int : 440 ms P-R-T Axes : 056 067 039 degrees QTc Int : 424 ms SINUS BRADYCARDIA WITH SINUS ARRHYTHMIA OTHERWISE NORMAL ECG WHEN COMPARED WITH ECG OF 05-NOV-2017 21:47, NO SIGNIFICANT CHANGE WAS FOUND Confirmed by Nguyễn Cook ([id number]) on 10/20/2019 10:26:37 AM Referred By: Confirmed By:Nguyễn Cook
[2019-10-20] MEDS: PRENATAL VITAMINS W/ FOLIC ACID TABLET (FP) PO SCH (11:24)
[2019-10-20] MEDS: NICOTINE 14 MG/24 HOURS TOPICAL PATCH TD SCH (11:24)
--- NOTE | 2019-10-20 12:17 | PN ---
BHS COWS - Scale Resting Pulse: 0= [place] 80 or Below Sweatin= Chills/Flushing Restless Observation: 0= Sits Still Pupil Size: 0= Normal to Room Light Bone or Joint Aches: 2= Severe Diffuse Aches Runny Nose/ Eye Tearin= None GI Upset > 30mins: 0= None Tremor Observation of Outstretched Hands: 2= Slight Tremor Visible Yawning Observation: 2= >3x During Session Anxiety or Irritability: 2=Irritable/Anxious Goose Flesh Skin: 0=Smooth Skin COWS Score: 9 BHS Progress Note (SOAP) Subjective: shakes sweats agitation irritable interrupted sleep Objective: 10/20/19 12:16 Vital Signs Temperature 97.3 F L 10/20/19 08:42 Pulse Rate 69 10/20/19 08:42 Respiratory Rate 16 10/20/19 08:42 Blood Pressure 107/61 10/20/19 08:42 O2 Sat by Pulse Oximetry (%) 99 10/20/19 05:44 labs pending aaox3 ambulating no acute distress Assessment: 10/20/19 12:16 withdrawals Plan: continue detox increase fluids pending labs
[2019-10-20] MEDS: hydrOXYzine PAMOATE 25 MG CAPSULE (FP) PO PRN (22:19)
[2019-10-20] MEDS: MELATONIN 5 MG TABLETS PO SCH (22:19)
[2019-10-20] MEDS: METHOCARBAMOL 500 MG TABLET PO PRN (22:19)
[2019-10-20] MEDS: THIAMINE HCL 100 MG TABLET (FP) PO SCH (22:20)
[2019-10-21] MEDS ORDERED: METHADONE HCL 10 MG TABLET (FOR DETOX USE ONLY) PO ONE (10:00)
[2019-10-21] MEDS: PRENATAL VITAMINS W/ FOLIC ACID TABLET (FP) PO SCH (10:46)
[2019-10-21] MEDS: NICOTINE 14 MG/24 HOURS TOPICAL PATCH TD SCH (10:46)
--- NOTE | 2019-10-21 12:15 | PN ---
BHS COWS - Scale Resting Pulse: 0= [place] 80 or Below Sweatin= Chills/Flushing Restless Observation: 1= Difficult to Sit Still Pupil Size: 0= Normal to Room Light Bone or Joint Aches: 0= None Runny Nose/ Eye Tearin= None GI Upset > 30mins: 0= None Tremor Observation of Outstretched Hands: 1= Tremor [place], Not Seen Yawning Observation: 0= None Anxiety or Irritability: 2=Irritable/Anxious Goose Flesh Skin: 0=Smooth Skin COWS Score: 5 BHS Progress Note (SOAP) Subjective: irritable agitation I dont want to be bothered by you or anyone. Objective: 10/21/19 12:15 Vital Signs Temperature 97.1 F L 10/21/19 09:07 Pulse Rate 67 10/21/19 09:07 Respiratory Rate 17 10/21/19 09:07 Blood Pressure 113/56 L 10/21/19 09:07 O2 Sat by Pulse Oximetry (%) 98 10/21/19 09:07 Laboratory Tests 10/19/19 22:25 COVID-19 (KRATIK) Not detected aaox3 lying in bed no acute distress Assessment: 10/21/19 12:15 withdrawals Plan: continue detox
[2019-10-21] MEDS: METHOCARBAMOL 500 MG TABLET PO PRN (21:47)
[2019-10-21] MEDS: hydrOXYzine PAMOATE 25 MG CAPSULE (FP) PO PRN (21:47)
[2019-10-21] MEDS: THIAMINE HCL 100 MG TABLET (FP) PO SCH (21:47)
[2019-10-21] MEDS: MELATONIN 5 MG TABLETS PO SCH (21:47)
[2019-10-22] MEDS ORDERED: METHADONE HCL 10 MG TABLET (FOR DETOX USE ONLY) ONE (09:11)
[2019-10-22] MEDS ORDERED: METHADONE HCL 5 MG TABLET (FOR DETOX USE ONLY) ONE (09:11)
--- NOTE | 2019-10-22 09:33 | PN ---
BHS COWS - Scale Resting Pulse: 0= [place] 80 or Below Sweatin= Chills/Flushing Restless Observation: 0= Sits Still Pupil Size: 0= Normal to Room Light Bone or Joint Aches: 1= Mild Discomfort Runny Nose/ Eye Tearin= None GI Upset > 30mins: 0= None Tremor Observation of Outstretched Hands: 0= None Yawning Observation: 1= 1-2x During Session Anxiety or Irritability: 2=Irritable/Anxious Goose Flesh Skin: 0=Smooth Skin COWS Score: 5 BHS Progress Note (SOAP) Subjective: feeling better sweats irritable Objective: 10/22/19 09:29 Vital Signs Temperature 97.1 F L 10/22/19 05:59 Pulse Rate 48 L 10/22/19 05:59 Respiratory Rate 20 10/22/19 05:59 Blood Pressure 103/55 L 10/22/19 05:59 O2 Sat by Pulse Oximetry (%) 100 10/22/19 05:59 Laboratory Tests 10/19/19 22:25 COVID-19 (KARTIK) Not detected aaox3 ambulating no acute distress Assessment: 10/22/19 09:33 withdrawals Plan: continue detox increase fluids
[2019-10-22] MEDS ORDERED: METHADONE (DETOX) 10 MG, METHADONE (DETOX) 5 MG PO ONE (10:00)
[2019-10-22] MEDS: PRENATAL VITAMINS W/ FOLIC ACID TABLET (FP) PO SCH (12:47)
[2019-10-22] MEDS: NICOTINE 14 MG/24 HOURS TOPICAL PATCH TD SCH (12:47)
[2019-10-22] MEDS: MELATONIN 5 MG TABLETS PO SCH (22:35)
[2019-10-22] MEDS: hydrOXYzine PAMOATE 25 MG CAPSULE (FP) PO PRN (22:36)
[2019-10-22] MEDS: METHOCARBAMOL 500 MG TABLET PO PRN (22:36)
[2019-10-22] MEDS: THIAMINE HCL 100 MG TABLET (FP) PO SCH (22:36)
[2019-10-23 06:40] VITALS: BP 100/55; PULSE 54; TEMP 97.1
[2019-10-23] MEDS ORDERED: METHADONE HCL 10 MG TABLET (FOR DETOX USE ONLY) PO ONE (10:00)
[2019-10-23] MEDS: NICOTINE 14 MG/24 HOURS TOPICAL PATCH TD SCH (11:19)
[2019-10-23] MEDS: PRENATAL VITAMINS W/ FOLIC ACID TABLET (FP) PO SCH (11:19)
--- NOTE | 2019-10-23 12:03 | PN ---
BHS COWS - Scale Resting Pulse: 0= [place] 80 or Below Sweatin= No chills or Flushing Restless Observation: 0= Sits Still Pupil Size: 0= Normal to Room Light Bone or Joint Aches: 1= Mild Discomfort Runny Nose/ Eye Tearin= None GI Upset > 30mins: 0= None Tremor Observation of Outstretched Hands: 1= Tremor [place], Not Seen Yawning Observation: 0= None Anxiety or Irritability: 1=Feels Anxious/Irritable Goose Flesh Skin: 0=Smooth Skin COWS Score: 3 S Progress Note (SOAP) Subjective: feeling better I want to leave Objective: 10/23/19 12:01 Vital Signs Temperature 97.1 F L 10/23/19 10:00 Pulse Rate 55 10/23/19 10:00 Respiratory Rate 20 10/23/19 10:00 Blood Pressure 107/69 10/23/19 10:00 O2 Sat by Pulse Oximetry (%) 99 10/23/19 10:00 aaox3 ambulating no acute distress Assessment: 10/23/19 12:02 mild withdrawals Plan: d/c today
--- NOTE | 2019-10-23 12:05 | DS ---
[facility] Detox Discharge Summary Admission Date: 10/19/19 Discharge Date: 10/23/19 - History Present History: Cannabis Dependence, Cocaine Dependence, Opioid Dependence - Physical Exam Results Vital Signs: Vital Signs Temperature 97.1 F L 10/23/19 06:02 Pulse Rate 54 L 10/23/19 06:02 Respiratory Rate 20 10/23/19 06:02 Blood Pressure 100/55 L 10/23/19 06:02 O2 Sat by Pulse Oximetry (%) 99 10/23/19 06:02 Pertinent Admission Physical Exam Findings: Vital Signs Temperature 97.1 F L 10/23/19 10:00 Pulse Rate 55 L 10/23/19 10:00 Respiratory Rate 10/23/19 10:00 Blood Pressure 107/69 10/23/19 10:00 O2 Sat by Pulse Oximetry (%) 99 10/23/19 10:00 Laboratory Tests 10/19/19 22:25 COVID-19 (KARTIK) Not detected aaox3 ambulating no acute distress - Treatment Hospital Course: Detox Protocol Followed, Detoxed Safely, Responded well, Discharged Condition Good, Rehab Referral Accepted - Medication Discharge Medications: Ambulatory Orders NK [No Known Home Medication] 10/30/18 - Diagnosis (1) Depressed affect Current Visit: No Status: Acute (2) Substance-induced sleep disorder Current Visit: No Status: Acute (3) ADD (attention deficit disorder) Current Visit: No Status: Chronic (4) Cannabis dependence Current Visit: Yes Status: Chronic (5) Cocaine dependence Current Visit: Yes Status: Chronic Qualifiers: Substance use status: uncomplicated Qualified Code(s): F14.20 - Cocaine dependence, uncomplicated (6) IVDU (intravenous drug user) Current Visit: No Status: Chronic (7) Nicotine dependence Current Visit: Yes Status: Chronic Qualifiers: Nicotine product type: cigarettes Substance use status: uncomplicated Qualified Code(s): F17.210 - Nicotine dependence, cigarettes, uncomplicated (8) Opioid dependence with withdrawal Current Visit: Yes Status: Chronic (9) Depression (emotion) Current Visit: No Status: Suspected Qualifiers: Depression Type: dysthymia Qualified Code(s): F34.1 - Dysthymic disorder (10) Insomnia Current Visit: No Status: Suspected Qualifiers: Insomnia type: unspecified Qualified Code(s): G47.00 - Insomnia, unspecified (11) Substance induced mood disorder Current Visit: No Status: Suspected - AMA Did Patient Leave Against Medical Advice: No
[2019-10-24] MEDS ORDERED: METHADONE HCL 5 MG TABLET (FOR DETOX USE ONLY) PO ONE (06:00)
== END 2019-10-23 12:48 | disposition home or self-care (01) | DRG 773 ==
LOC: YASAS 16:39 → Y6N 22:25
PROVIDERS: ADMIT Allergy & Immunology; ATTEND Allergy & Immunology
PROC: HZ2ZZZZ Detoxification Services for Substance Abuse Treatment (ICD-10-PCS; principal; 2019-10-19)
DX: F11.23 Opioid dependence with withdrawal (principal); F14.20 Cocaine dependence, uncomplicated; F12.20 Cannabis dependence, uncomplicated; F17.210 Nicotine dependence, cigarettes, uncomplicated; F19.24 Other psychoactive substance dependence with psychoactive substance-induced mood disorder; F19.282 Other psychoactive substance dependence with psychoactive substance-induced sleep disorder; F90.9 Attention-deficit hyperactivity disorder, unspecified type; F34.1 Dysthymic disorder; G47.00 Insomnia, unspecified; Z88.0 Allergy status to penicillin
CPT/HCPCS: 93005; 93010; J0735; Q0162; U0003

== ENCOUNTER 2020-06-21 14:50 | Inpatient (IN) | payer OTHER ==
[2020-06-21 17:35] VITALS: BMI 30.4
[2020-06-21] MEDS ORDERED: ONDANSETRON *ODT* 4 MG TABLET SL PRN (18:08)
[2020-06-21] MEDS ORDERED: ACETAMINOPHEN 325 MG TABLET (FP) PO PRN ×2 (18:08)
[2020-06-21] MEDS ORDERED: cloNIDine HCL 0.1 MG TABLET PO PRN (18:08)
[2020-06-21] MEDS ORDERED: IBUPROFEN 400 MG TABLET (FP) PO PRN (18:08)
[2020-06-21] MEDS ORDERED: MAGNESIUM CITRATE 300 ML BOTTLE PO PRN (18:08)
[2020-06-21] MEDS ORDERED: MAGNESIUM HYDROX 2400MG/30ML ORAL SUSPENSION 30 ML CUP PO PRN (18:08)
[2020-06-21] MEDS ORDERED: MAG HYDROX/AL HYDROX/SIMETH 30 ML UNIT-DOSE CUP PO PRN (18:08)
[2020-06-21] MEDS ORDERED: NICOTINE POLACRILEX 2 MG GUM BUC PRN (18:08)
[2020-06-21] MEDS ORDERED: METHADONE HCL 10 MG TABLET (FOR DETOX USE ONLY) PO ONE (18:08)
[2020-06-21] MEDS ORDERED: BISMUTH SUBSALICYLATE 524 MG/30 ML UD PO PRN (18:08)
[2020-06-21] MEDS ORDERED: MENTHOL/PHENOL 1 EACH UD MM PRN (18:08)
[2020-06-21] MEDS: hydrOXYzine PAMOATE 25 MG CAPSULE (FP) PO PRN (19:56)
[2020-06-21] MEDS: METHOCARBAMOL 500 MG TABLET PO PRN (19:57)
[2020-06-21] MEDS: THIAMINE HCL 100 MG TABLET (FP) PO SCH (23:02)
[2020-06-21] MEDS: MELATONIN 5 MG TABLETS PO SCH (23:02)
[2020-06-22] MEDS ORDERED: METHADONE HCL 10 MG TABLET (FOR DETOX USE ONLY) ONE (09:30)
[2020-06-22] MEDS ORDERED: METHADONE HCL 5 MG TABLET (FOR DETOX USE ONLY) ONE (09:30)
[2020-06-22] MEDS: NICOTINE 21 MG/24 HOURS TOPICAL PATCH TD SCH (09:47)
[2020-06-22] MEDS: METHOCARBAMOL 500 MG TABLET PO PRN ×2 (09:48→21:12)
[2020-06-22] MEDS: PRENATAL VITAMINS W/ FOLIC ACID TABLET (FP) PO SCH (09:48)
[2020-06-22] MEDS: diazePAM 5 MG TABLET PO PRN ×2 (09:48→21:12)
[2020-06-22] MEDS ORDERED: METHADONE (DETOX) 20 MG, METHADONE (DETOX) 5 MG PO ONE (10:00)
[2020-06-22] MEDS: THIAMINE HCL 100 MG TABLET (FP) PO SCH (21:11)
[2020-06-22] MEDS: hydrOXYzine PAMOATE 25 MG CAPSULE (FP) PO PRN (21:11)
[2020-06-22] MEDS: MELATONIN 5 MG TABLETS PO SCH (21:12)
[2020-06-23] MEDS: PRENATAL VITAMINS W/ FOLIC ACID TABLET (FP) PO SCH (09:59)
[2020-06-23] MEDS: NICOTINE 21 MG/24 HOURS TOPICAL PATCH TD SCH (09:59)
[2020-06-23] MEDS: diazePAM 5 MG TABLET PO PRN ×2 (09:59→21:25)
[2020-06-23] MEDS ORDERED: METHADONE HCL 10 MG TABLET (FOR DETOX USE ONLY) PO ONE (10:00)
[2020-06-23] MEDS: MELATONIN 5 MG TABLETS PO SCH (21:25)
[2020-06-23] MEDS: THIAMINE HCL 100 MG TABLET (FP) PO SCH (21:25)
[2020-06-23] MEDS: METHOCARBAMOL 500 MG TABLET PO PRN (21:25)
[2020-06-24 06:08] LABS: SARS-CoV-2 NAA Not Detected (Not Detected)
[2020-06-24] MEDS ORDERED: METHADONE HCL 10 MG TABLET (FOR DETOX USE ONLY) ONE (09:16)
[2020-06-24] MEDS ORDERED: METHADONE HCL 5 MG TABLET (FOR DETOX USE ONLY) ONE (09:17)
[2020-06-24] MEDS ORDERED: METHADONE (DETOX) 10 MG, METHADONE (DETOX) 5 MG PO ONE (10:00)
[2020-06-24] MEDS: PRENATAL VITAMINS W/ FOLIC ACID TABLET (FP) PO SCH (10:20)
[2020-06-24] MEDS: NICOTINE 21 MG/24 HOURS TOPICAL PATCH TD SCH (10:22)
[2020-06-24] MEDS: METHOCARBAMOL 500 MG TABLET PO PRN (10:24)
[2020-06-24] MEDS: diazePAM 5 MG TABLET PO PRN (10:24)
[2020-06-24 13:27] VITALS: BP 136/84; PULSE 112; TEMP 96.8
[2020-06-25] MEDS ORDERED: METHADONE HCL 10 MG TABLET (FOR DETOX USE ONLY) PO ONE (10:00)
[2020-06-26] MEDS ORDERED: METHADONE HCL 5 MG TABLET (FOR DETOX USE ONLY) PO ONE (06:00)
== END 2020-06-24 13:45 | disposition left against medical advice (07) | DRG 770 ==
LOC: YASAS 14:50 → Y3N 19:01
PROVIDERS: ADMIT Allergy & Immunology; ATTEND Allergy & Immunology
PROC: HZ2ZZZZ Detoxification Services for Substance Abuse Treatment (ICD-10-PCS; principal; 2020-06-21)
DX: F11.23 Opioid dependence with withdrawal (principal); F14.20 Cocaine dependence, uncomplicated; F12.20 Cannabis dependence, uncomplicated; F17.210 Nicotine dependence, cigarettes, uncomplicated; F34.1 Dysthymic disorder; G47.00 Insomnia, unspecified; Z88.0 Allergy status to penicillin
CPT/HCPCS: 93005; 93010; C9803; U0003; U0005